=== PATIENT | male | born 1930 | race Caucasian/White ===

== ENCOUNTER 2018-07-08 14:57 | Observation (INO) ==
--- NOTE | 2018-07-08 15:38 | Emergency Department Note ---
Disposition Clinical Impression: Enlarged prostate, Urinary retention, General weakness Hematuria Qualifiers: Hematuria type: unspecified type Qualified Code(s): R31.9 - Hematuria, unspecified Disposition: Admitted As Inpatient Condition: Good Time of Disposition: 18:14 General Adult HPI - General Chief complaint: ED Weakness Stated complaint: "Hematuria/Weakness" Time Seen by Provider: 07/08/18 15:09 Nursing Notes Reviewed: Yes Vital Signs Reviewed: Yes - History of Present Illness HPI Narrative: 87-year-old male presents from home via EMS for evaluation of weakness and hematuria. Patient had blood in his urine onset yesterday at 10 AM. He has pain with urination which she is unable to quantify. He was seen and evaluated by his primary care physician prescribe ciprofloxacin for a presumed UTI. His pain and the redness of his urine has become worse. He is now dribbling with evidence of blood-tinged stains on his trousers. He has been feeling progressively profoundly weak. He fell at home because his legs gave out. He did not hit his head and he denies loss of consciousness. Patient does live at home alone. PMH: BPH with operative reduction, remote ME Antiplatelet: Aspirin 81 mg Wednesday, Wednesday, Wednesday No anticoagulant X ROS: Positive: As above Negative: Fever, chills, nausea, vomiting, chest pains, palpitations, dyspnea, diaphoresis, unusual back pain, change in bowel habits - Related Data Home Medications Medication Instructions Recorded Confirmed Atorvastatin [Lipitor] 40 mg PO HS 07/08/18 07/08/18 Carbidopa/Levodopa 25/100 [Sinemet 1 tab PO TID 07/08/18 07/08/18 25/100] Fluticasone Propionate Nasal 2 spr NS DAILY 07/08/18 07/08/18 [Flonase] Loratadine [Allergy Relief] 10 mg PO DAILY 07/08/18 07/08/18 Losartan [Cozaar] 25 mg PO DAILY 07/08/18 07/08/18 Metoprolol Succinate [Toprol Xl] 25 mg PO DAILY 07/08/18 07/08/18 Mirtazapine [Remeron] 45 mg PO HS 07/08/18 07/08/18 Montelukast [Singulair] 10 mg PO DAILY 07/08/18 07/08/18 Pantoprazole Sodium [Protonix] 40 mg PO DAILY 07/08/18 07/08/18 Ropinirole HCl [Requip] 2 mg PO TID 07/08/18 07/08/18 Spironolactone [Aldactone] 25 mg PO DAILY 07/08/18 07/08/18 Tamsulosin HCl [Flomax] 0.4 mg PO DAILY 07/08/18 07/08/18 diazePAM [Valium] 5 mg PO HS 07/08/18 07/08/18 Allergies Allergy/AdvReac Type Severity Reaction Status Date / Time No Known Allergies Allergy Verified 02/15/17 14:23 All systems ED: reviewed and negative except as stated. Review of Systems: As Per HPI Past Medical History - Past Medical History Medical history: Reports: other Psychiatric history: Reports: no psych history - Social History Smoking Status: Former smoker Smokeless Tobacco Status: No Alcohol use: Reports: none Drug use: Reports: none Physical Exam Vital Signs Reviewed General: Patient is alert, oriented, and in no acute distress. Patient is very hard of hearing however, with loud volume, he easily understands and answers questions properly. Head: atraumatic, normocephalic Eye: normal appearance, PERRL, EOMI, no scleral icterus, no conjunctival injection ENT: mucous membranes moist, normal external ear exam Neck: normal inspection, trachea midline, full ROM Chest: normal inspection, symmetric chest rise Respiratory: Good respiratory effort. Bilateral breath sounds are clear without wheezing, crackles, or rhonchi. Cardiovascular: Regular rate and rhythm. No clicks, rubs, gallops, or murmors. Normal heart sounds. Abdomen: Bowel sounds present normoactive x-4 quadrants. Abdomen is soft, nondistended, and nontender. No guarding or rebound. No organomegaly noted. Musculoskeletal: Spontaneously moving all extremities. Skin: warm, dry. 4 cm superficial skin tear over the dorsum of right hand. 1 cm superficial skin tear over the right middle finger. 2 cm superficial skin tear over the right ring finger. Neuro: Alert and oriented x4. Sensation light touch intact and equal bilaterally. Strength 5/5 and equal in upper and lower extremity. GCS 15. Answering all questions appropriately and briskly. No facial droop. No slurring of speech. Psych: Patient's affect is appropriate for situation. Course Course Narrative: EKG dated 8/31/18 at 15:46 interpreted as sinus rhythm with rate of 71. VT 254 ; first-degree AV block. QTC 436. Nonspecific ST-T changes. No previous EKG for comparison. Coudet fisher catheter placed; dark red urine returned. Serum hematology shows mild leukocytosis. Serum chemistry not concerning. Urinalysis concerning for UTI with overt hematuria. Urine culture ordered. Discussed the patient with on-call urology, Dr. Lawler, who agrees to accept the patient on consult. Discussed concern for possible bladder versus prostate cancer in the context of his hematuria which could also be caused by urinary tract infection. Discussed the patient with the admitting hospitalist, he agrees to accept the patient for continued evaluation and management of weakness and hematuria with urology on consult. Vital Signs Temperature 97.8 F 07/08/18 15:19 Pulse Rate 79 07/08/18 15:19 Respiratory Rate 20 07/08/18 15:19 Blood Pressure 125/72 07/08/18 15:19 O2 Sat by Pulse Oximetry 97 07/08/18 15:19 Temperature 97.8 F 07/08/18 15:56 Pulse Rate 74 07/08/18 16:02 Respiratory Rate 28 07/08/18 16:02 Blood Pressure 128/68 07/08/18 16:02 O2 Sat by Pulse Oximetry 97 07/08/18 16:02 Oxygen Delivery Oxygen Delivery Room Air Medical Decision Making - Lab Data Result diagrams: 07/08/18 15:31 07/08/18 15:33 Lab Results 07/08/18 07/08/18 07/08/18 Range/Units 15:31 15:33 17:07 WBC 12.1 H (4.3-11.1) K/mcL RBC 4.25 (4.19-5.50) M/mcL Hgb 13.5 (12.9-16.9) g/dL Hct 39.2 (37.5-50.1) % MCV 92.2 (83.0-100.0) fL MCH 31.8 (28.0-33.3) pg MCHC 34.4 (31.6-35.5) g/dL RDW 12.8 (11.5-14.5) % Plt Count 182 (140-400) K/mcL MPV 9.6 (9.4-12.4) fL Immature Gran % 0.3 (0-4) % Seg Neutrophils % 83.5 % Lymphocytes % 9.0 % Monocytes % 7.0 % Eosinophils % 0.1 % Basophils % 0.1 % Neutrophils # 10.1 H (1.6-8.9) K/mcL Lymphocytes # 1.1 (0.6-4.6) K/mcL Monocytes # 0.9 (0.0-1.3) K/mcL Eosinophils # 0.0 (0.0-0.6) K/mcL Basophils # 0.0 (0.0-0.2) K/mcL Sodium 135 L (136-145) mEq/L Potassium 3.8 (3.5-5.1) mEq/L Chloride 103 (98-107) mEq/L Carbon Dioxide 24 (23-29) mEq/L BUN 24 H (8-23) mg/dL Creatinine 1.06 (0.70-1.30) mg/dL Est GFR ( Amer) > 60 (> 60) Est GFR (Non-Af Amer) > 60 (> 60) BUN/Creatinine Ratio 23 (6-26) Glucose 109 H (70-105) mg/dL Calculated Osmolality 285 (280-300) Calcium 9.1 (8.6-10.3) mg/dL Troponin I 0.03 (< 0.04) ng/mL Urine Color Red A (Yellow) Urine Clarity Turbid A (Clear) Urine pH 6.0 (5.0-8.0) pH Units Ur Specific [place] 1.021 (1.010-1.025) Urine Protein >=300 H (Neg-Trace) mg/dL Urine Glucose (UA) 100 H (Normal) mg/dL Urine Ketones 15 H (Negative) mg/dL Urine Blood Large H (Negative) Urine Nitrite Positive A (Negative) Urine Bilirubin Large H (Negative) Urine Urobilinogen Normal (Normal) mg/dL Ur Leukocyte Esterase Moderate H (Negative) Urine Microscopic RBC TNTC H (0-3) per hpf Urine Microscopic WBC 3-5 H (0-3) per hpf Ur Squamous Epith Cells Many H (None-Few) per lpf Urine Bacteria None Seen (None-Few) per hpf Ur Culture Indicated? NO. A (NO)
[2018-07-08 16:04] LABS: Basophils % 0.1 %; Eosinophils % 0.1 %; Hematocrit 39.2 % (37.5-50.1); Hemoglobin 13.5 g/dL (12.9-16.9); Immature Granulocytes % 0.3 % (0-4); Lymphocytes # 1.1 K/mcL (0.6-4.6); Mean Corpuscular HGB Conc 34.4 g/dL (31.6-35.5); Mean Corpuscular Hemoglobin 31.8 pg (28.0-33.3); Mean Corpuscular Volume 92.2 fL (83.0-100.0); Mean Platelet Volume 9.6 fL (9.4-12.4); Monocytes # 0.9 K/mcL (0.0-1.3); Neutrophils # 10.1 K/mcL (1.6-8.9); Platelet Count 182 K/mcL (140-400); Red Blood Count 4.25 M/mcL (4.19-5.50); Red Cell Distribution Width 12.8 % (11.5-14.5); Segmented Neutrophils % 83.5 %
[2018-07-08 16:25] LABS: BUN/Creatinine Ratio 23 (6-26); Blood Urea Nitrogen 24 mg/dL (8-23); Calcium 9.1 mg/dL (8.6-10.3); Carbon Dioxide 24 mEq/L (23-29); Chloride 103 mEq/L (98-107); Glucose 109 mg/dL (70-105); Osmolality,Calculated 285 (280-300); Potassium 3.8 mEq/L (3.5-5.1); Sodium 135 mEq/L (136-145); Troponin I 0.03 ng/mL (< 0.04); eGFR For Non-African Americans > 60 (> 60)
[2018-07-08 17:22] LABS: Bilirubin,Urine Large (Negative); Blood,Urine Large (Negative); Clarity,Urine Turbid (Clear); Color,Urine Red (Yellow); Glucose,Urine (UA) 100 mg/dL (Normal); Ketones,Urine 15 mg/dL (Negative); Leukocyte Esterase,Urine Moderate (Negative); Nitrite,Urine Positive (Negative); Protein,Urine >=300 mg/dL (Neg-Trace); Specific Gravity,Urine 1.021 (1.010-1.025); Urobilinogen,Urine Normal (Normal)
[2018-07-08 17:23] LABS: Bacteria,Urine None Seen per hpf (None-Few); RBC,Urine TNTC per hpf (0-3); Squamous Epithelial Cell,Urine Many per lpf (None-Few)
[2018-07-08] MEDS ORDERED: cefTRIAXone 2,000 MG in Water for inj. (sterile) 20 ML 20 ML IVP ONE (17:34)
[2018-07-08] MEDS ORDERED: 0.9 % Sodium Chloride 500 ML IVC ONE (17:42)
--- NOTE | 2018-07-08 17:42 | Emergency Department Note ---
Disposition Clinical Impression: Hematuria, Enlarged prostate, Urinary retention, General weakness Disposition: Admitted As Inpatient Forms: ED Satisfaction Letter General Adult HPI - General Chief complaint: ED Urogenital-Male Stated complaint: "Hematuria/Weakness" Time Seen by Provider: 07/08/18 15:09 Source: family Limitations: physical limitation - History of Present Illness Pain Scale: 0 - Related Data Previous Rx's Medication Instructions Recorded cephALEXin [Keflex] 500 mg PO TID #21 capsule 02/15/17 Allergies Allergy/AdvReac Type Severity Reaction Status Date / Time No Known Allergies Allergy Verified 02/15/17 14:23 Past Medical History - Past Medical History Medical history: Reports: hyperlipidemia, hypertension, myocardial infarction, other Psychiatric history: Reports: no psych history - Social History Smoking Status: Former smoker Smokeless Tobacco Status: No Alcohol use: Reports: none Drug use: Reports: none Physical Exam - General Limitations: physical limitation Course Vital Signs Temperature 97.8 F 07/08/18 15:19 Pulse Rate 79 07/08/18 15:19 Respiratory Rate 20 07/08/18 15:19 Blood Pressure 125/72 07/08/18 15:19 O2 Sat by Pulse Oximetry 97 07/08/18 15:19 Temperature 97.8 F 07/08/18 15:56 Pulse Rate 74 07/08/18 16:02 Respiratory Rate 28 07/08/18 16:02 Blood Pressure 128/68 07/08/18 16:02 O2 Sat by Pulse Oximetry 97 07/08/18 16:02 Oxygen Delivery Oxygen Delivery Room Air Medical Decision Making - Lab Data Result diagrams: 07/08/18 15:31 07/08/18 15:33 Lab Results 07/08/18 07/08/18 07/08/18 Range/Units 15:31 15:33 17:07 WBC 12.1 H (4.3-11.1) K/mcL RBC 4.25 (4.19-5.50) M/mcL Hgb 13.5 (12.9-16.9) g/dL Hct 39.2 (37.5-50.1) % MCV 92.2 (83.0-100.0) fL MCH 31.8 (28.0-33.3) pg MCHC 34.4 (31.6-35.5) g/dL RDW 12.8 (11.5-14.5) % Plt Count 182 (140-400) K/mcL MPV 9.6 (9.4-12.4) fL Immature Gran % 0.3 (0-4) % Seg Neutrophils % 83.5 % Lymphocytes % 9.0 % Monocytes % 7.0 % Eosinophils % 0.1 % Basophils % 0.1 % Neutrophils # 10.1 H (1.6-8.9) K/mcL Lymphocytes # 1.1 (0.6-4.6) K/mcL Monocytes # 0.9 (0.0-1.3) K/mcL Eosinophils # 0.0 (0.0-0.6) K/mcL Basophils # 0.0 (0.0-0.2) K/mcL Sodium 135 L (136-145) mEq/L Potassium 3.8 (3.5-5.1) mEq/L Chloride 103 (98-107) mEq/L Carbon Dioxide 24 (23-29) mEq/L BUN 24 H (8-23) mg/dL Creatinine 1.06 (0.70-1.30) mg/dL Est GFR ( Amer) > 60 (> 60) Est GFR (Non-Af Amer) > 60 (> 60) BUN/Creatinine Ratio 23 (6-26) Glucose 109 H (70-105) mg/dL Calculated Osmolality 285 (280-300) Calcium 9.1 (8.6-10.3) mg/dL Troponin I 0.03 (< 0.04) ng/mL Urine Color Red A (Yellow) Urine Clarity Turbid A (Clear) Urine pH 6.0 (5.0-8.0) pH Units Ur Specific [place] 1.021 (1.010-1.025) Urine Protein >=300 H (Neg-Trace) mg/dL Urine Glucose (UA) 100 H (Normal) mg/dL Urine Ketones 15 H (Negative) mg/dL Urine Blood Large H (Negative) Urine Nitrite Positive A (Negative) Urine Bilirubin Large H (Negative) Urine Urobilinogen Normal (Normal) mg/dL Ur Leukocyte Esterase Moderate H (Negative) Urine Microscopic RBC TNTC H (0-3) per hpf Urine Microscopic WBC 3-5 H (0-3) per hpf Ur Squamous Epith Cells Many H (None-Few) per lpf Urine Bacteria None Seen (None-Few) per hpf Ur Culture Indicated? NO. A (NO) Critical Care Time Critical Care Time: No Attestation Statement - Attestation Attestation: I examined this patient and my medical decision-making was reviewed with the Resident Physician. I agree with the documented findings, disposition and treatment plan as described except to the extent set forth below. 87-year-old male presents emergency room for hematuria. Patient was unable to urinate secondary some bladder retention secondary to obstruction from blood clots. We did a CT scan which showed obvious debris in the bladder concerning for blood and possible underlying malignancy. His prostate was also severely enlarged which could also be consistent with either BPH or prostatic malignancy. He has also been feeling weak which I feel is secondary to the above. We were able to place a [place]ral catheter that straining hematuria blood and urine. consulted with urology. will see in consult. started him on rocephin. iv fluids. admit to hospitalist for further workup and evaluation
--- NOTE | 2018-07-08 18:24 | Internal Med History&Physical ---
Date of Encounter: 07/08/18 Time of Encounter: 18:00 Internal Medicine - H&P: HPI Chief complaint: Gross hematuria Admitted From: Home Plans for Post Hospital Care: [facility] History of present illness: Patient is an 87-year-old male with past medical history significant for hypertension and hyperlipidemia who presents with fall secondary to weakness due to gross hematuria. Patient lives independently and is a very poor historian. Granddaughter, who is at bedside, states that she got a call while at work stating that EMS was at patients house. When granddaughter arrived, she learned that patient had fell secondary to weakness. Patient reported to granddaughter that he had a one-day onset of blood in urine. Patient was brought in to ER for further evaluation. In the ER urinalysis revealed hematuria. Urologist was consulted from the ER per extended utilization review personnel. Patient will be admitted to medical surgical floor for management of gross hematuria. Past Med Surg Social Fam HX - Past Medical History Medical history: other Additional medical history: unknown Psychiatric history: no psych history - Past Surgical History Additional surgical history: Cardiac stent x2, prostate sx - Social History Smoking Status: Former smoker Smokeless Tobacco Status: No Alcohol use: none Drug use: none Internal Medicine - H&P: Meds Atorvastatin [Lipitor] 40 mg PO HS 07/08/18 [History] Carbidopa/Levodopa 25/100 [Sinemet 25/100] 1 tab PO TID 07/08/18 [History] Fluticasone Propionate Nasal [Flonase] 2 spr NS DAILY 07/08/18 [History] Loratadine [Allergy Relief] 10 mg PO DAILY 07/08/18 [History] Losartan [Cozaar] 25 mg PO DAILY 07/08/18 [History] Metoprolol Succinate [Toprol Xl] 25 mg PO DAILY 07/08/18 [History] Mirtazapine [Remeron] 45 mg PO HS 07/08/18 [History] Montelukast [Singulair] 10 mg PO DAILY 07/08/18 [History] Pantoprazole Sodium [Protonix] 40 mg PO DAILY 07/08/18 [History] Ropinirole HCl [Requip] 2 mg PO TID 07/08/18 [History] Spironolactone [Aldactone] 25 mg PO DAILY 07/08/18 [History] Tamsulosin HCl [Flomax] 0.4 mg PO DAILY 07/08/18 [History] diazePAM [Valium] 5 mg PO HS 07/08/18 [History] 3 Allergy/AdvReac Type Severity Reaction Status Date / Time No Known Allergies Allergy Verified 02/15/17 14:23 ROS unobtainable: due to mental status, other All Systems PM: A 10-system review of systems was performed and is negative for pertinent findings except as documented above in the HPI. - Constitutional Vitals: Temp Pulse Resp BP Pulse Ox 97.8 F 74 28 128/68 97 07/08/18 15:56 07/08/18 16:02 07/08/18 16:02 07/08/18 16:02 07/08/18 16:02 General appearance: Present: no acute distress Exam: See below - Eye Eye exam: Present: normal appearance - ENT ENT exam: Present: mucous membranes dry - Respiratory Respiratory exam: Present: CTAB. Absent: accessory muscle use, rales, rhonchi, wheezes - Cardiovascular Cardiovascular exam: Present: RRR, +S1, +S2. Absent: diastolic murmur, gallop, rubs, systolic murmur - GI/Abdominal GI/Abdominal exam: Present: normal bowel sounds, soft, no peritoneal signs. Absent: distended, tenderness - Extremities Exam Extremities exam: Absent: pedal edema - Neurological Exam Neurological exam: Present: alert - Psychiatric Psychiatric exam: Present: normal mood - Skin Skin exam: Present: pallor Internal Med - H&P Results - Labs CBC & Chem 7: 07/08/18 15:31 07/08/18 15:33 Labs: Short CBC 07/08/18 Range/Units 15:31 WBC 12.1 H (4.3-11.1) K/mcL Hgb 13.5 (12.9-16.9) g/dL Hct 39.2 (37.5-50.1) % Plt Count 182 (140-400) K/mcL Neutrophils # 10.1 H (1.6-8.9) K/mcL BMP 07/08/18 15:33 Sodium 135 L Potassium 3.8 Chloride 103 Carbon Dioxide 24 BUN 24 H Creatinine 1.06 Glucose 109 H Calcium 9.1 Cardiac Enzymes 07/08/18 Range/Units 15:33 Troponin I 0.03 (< 0.04) ng/mL Urine 07/08/18 Range/Units 17:07 Urine Color Red A (Yellow) Urine Clarity Turbid A (Clear) Urine pH 6.0 (5.0-8.0) pH Units Ur Specific [place] 1.021 (1.010-1.025) Urine Protein >=300 H (Neg-Trace) mg/dL Urine Glucose (UA) 100 H (Normal) mg/dL - Impressions ITS Impressions Abdomen/Pelvis CT 07/08/18 15:31 IMPRESSION: 1. Layering blood products are demonstrated within urinary bladder and urinary bladder is distended. Etiology for this is indeterminate. This could be related to prostate cancer or urinary bladder cancer. 2. Rather marked prostate gland enlargement. BPH or cancer are considerations. 3. Nonobstructing punctate calculi bilateral kidneys. 4. Bilateral parapelvic renal cysts. 5. Diverticulosis coli without CT evidence of acute diverticulitis. 6. Calcific atherosclerotic disease aorta. D/ / Tod Winston / Tod Winston Interpreting Provider: Tod Winston - Assessment and plan (1) Hematuria Current Visit: Yes Status: Acute Assessment and plan: Patient with gross hematuria for unknown time given patient poor historian and lives independently Urology consulted from ER and appreciate recommendations Qualifiers: Hematuria type: unspecified type Qualified Code(s): R31.9 - Hematuria, unspecified (2) General weakness Current Visit: Yes Status: Acute Assessment and plan: Patient fell status post generalized weakness Will consult physical therapy for evaluation for home safety and appreciate recommendations. (3) Enlarged prostate Current Visit: Yes Status: Acute Assessment and plan: Continue home dose of Flomax (4) Urinary retention Current Visit: Yes Status: Acute Assessment and plan: Urologist consulted as above and appreciate recommendations (5) HTN (hypertension) Current Visit: Yes Status: Acute Assessment and plan: Controlled; continue home dose of ARB and beta kell Qualifiers: Hypertension type: essential hypertension Qualified Code(s): I10 - Essential (primary) hypertension (6) HLD (hyperlipidemia) Current Visit: Yes Status: Acute Assessment and plan: Continue statin Qualifiers: Hyperlipidemia type: unspecified Qualified Code(s): E78.5 - Hyperlipidemia , unspecified (7) DVT prophylaxis Current Visit: Yes Status: Acute Assessment and plan: SCDs due to gross hematuria above - Time Spent With Patient Total time spent is greater than 50% in coordination of care (as documented) at patient's floor/unit and/or counseling patient:
[2018-07-08] MEDS ORDERED: Naloxone 0.4 MG/ML INJ IVP PRN (18:32)
[2018-07-08 19:10] LABS: Hematocrit 35.6 % (37.5-50.1); Hemoglobin 12.1 g/dL (12.9-16.9)
--- NOTE | 2018-07-08 19:26 | Urology - Consult Note ---
Date of Encounter: 07/08/18 Time of Encounter: 19:26 - Assessment and Plan (1) Gross hematuria Current Visit: Yes Status: Acute Assessment and plan: Patient's catheter was removed. Patient was then prepped and draped in normal sterile fashion. I then placed a 24-[place] hematuria catheter into the patient' s bladder. Had resistance at the prostate which was guided past using gentle pressure. 20 mL's was then placed in the balloon. Grossly blood was then returned. I then manually irrigated a significant amount clot of the patient's bladder. He was then connected to continuous bladder irrigation which cleared on a fast drip. Patient will need to continue on continuous bladder irrigation at this time. Will add finasteride to the patient's medication regimen. (2) Acute cystitis with hematuria Current Visit: Yes Status: Acute Assessment and plan: Patient did receive 1 dose of Rocephin in the emergency department. We will plan on continuing that antibiotic. (3) Urinary retention Current Visit: Yes Status: Acute Assessment and plan: Patient need to continue with catheter drainage at this time. Unsure of how well the patient was emptying his bladder prior to arrival to the hospital. Urology CN:HPI Consult date: 07/08/18 Reason for consult Urology: Gross Hematuria Requesting physician: Sumit Steele History of present illness: Cody is a 87-year-old male with a history of recent fall secondary to weakness. Patient has a 1 day history of gross hematuria. Patient had gross hematuria upon arrival to the emergency department. An 18-[place] catheter was placed which did not successfully drained the patient's bladder. He had a urinalysis which was positive for nitrites. Patient also had CT scan done which showed a massive prostatic enlargement with clot within the patient's bladder. Patient does have a history of a greenlight photo vaporization of the prostate in [address] Ocasio. Patient has not followed up with Dr. Ocasio or a urologist with our practice since the surgery. Patient unable to answer questions regarding recent voiding problems. Patient is on Flomax. Past Med Surg Social Fam HX - Past Medical History Medical history: other Additional medical history: unknown Psychiatric history: no psych history - Past Surgical History Additional surgical history: Cardiac stent x2, prostate sx - Social History Smoking Status: Former smoker Smokeless Tobacco Status: No Alcohol use: none Drug use: none Medications and Allergies Atorvastatin [Lipitor] 40 mg PO HS 07/08/18 [History] Carbidopa/Levodopa 25/100 [Sinemet 25/100] 1 tab PO TID 07/08/18 [History] Fluticasone Propionate Nasal [Flonase] 2 spr NS DAILY 07/08/18 [History] Loratadine [Allergy Relief] 10 mg PO DAILY 07/08/18 [History] Losartan [Cozaar] 25 mg PO DAILY 07/08/18 [History] Metoprolol Succinate [Toprol Xl] 25 mg PO DAILY 07/08/18 [History] Mirtazapine [Remeron] 45 mg PO HS 07/08/18 [History] Montelukast [Singulair] 10 mg PO DAILY 07/08/18 [History] Pantoprazole Sodium [Protonix] 40 mg PO DAILY 07/08/18 [History] Ropinirole HCl [Requip] 2 mg PO TID 07/08/18 [History] Spironolactone [Aldactone] 25 mg PO DAILY 07/08/18 [History] Tamsulosin HCl [Flomax] 0.4 mg PO DAILY 07/08/18 [History] diazePAM [Valium] 5 mg PO HS 07/08/18 [History] 3 Allergy/AdvReac Type Severity Reaction Status Date / Time No Known Allergies Allergy Verified 02/15/17 14:23 Review of Systems ROS unobtainable: due to mental status Exam Initial Vital Signs Temp Pulse Resp BP Pulse Ox 97.8 F 79 20 125/72 97 07/08/18 15:19 07/08/18 15:19 07/08/18 15:19 07/08/18 15:19 07/08/18 15:19 General/Neuological: Patient alert but verbal communication difficult Eyes: normal pupils, non-icteric Neck: no lymphadenopathy noted, supple to touch Cardiovascular: RRR, no murmurs Respiratory: normal respiratory effort, clear bilaterally ABD: soft, nontender, no masses palpated, good bowel sounds Back: no pain on percussion bilaterally : normal phallus, normal scrotum, testicles and epididymides normal, urethral meatus normal. Catheter draining from meatus with blood surrounding it. Grossly bloody urine in tubing Skin: no rashes noted Musculoskeletal: Full range of motion 4 but patient confined to bed at this time. Urology Results - Labs 07/08/18 18:53 07/08/18 15:33 Abnormal lab results WBC 12.1 K/mcL (4.3-11.1) H 07/08/18 15:31 Hgb 12.1 g/dL (12.9-16.9) L 07/08/18 18:53 Hct 35.6 % (37.5-50.1) L 07/08/18 18:53 Neutrophils # 10.1 K/mcL (1.6-8.9) H 07/08/18 15:31 Sodium 135 mEq/L (136-145) L 07/08/18 15:33 BUN 24 mg/dL (8-23) H 07/08/18 15:33 Glucose 109 mg/dL (70-105) H 07/08/18 15:33 Urine Color Red (Yellow) A 07/08/18 17:07 Urine Clarity Turbid (Clear) A 07/08/18 17:07 Urine Protein >=300 mg/dL (Neg-Trace) H 07/08/18 17:07 Urine Glucose (UA) 100 mg/dL (Normal) H 07/08/18 17:07 Urine Ketones 15 mg/dL (Negative) H 07/08/18 17:07 Urine Blood Large (Negative) H 07/08/18 17:07 Urine Nitrite Positive (Negative) A 07/08/18 17:07 Urine Bilirubin Large (Negative) H 07/08/18 17:07 Ur Leukocyte Esterase Moderate (Negative) H 07/08/18 17:07 Urine Microscopic RBC TNTC per hpf (0-3) H 07/08/18 17:07 Urine Microscopic WBC 3-5 per hpf (0-3) H 07/08/18 17:07 Ur Squamous Epith Cells Many per lpf (None-Few) H 07/08/18 17:07 Ur Culture Indicated? NO. (NO) A 07/08/18 17:07 All other labs normal. - Imaging CT scan - abdomen: image reviewed CT scan - pelvis: image reviewed (CT scan shows very large prostatic enlargement with blood products within the patient's bladder.) Consult Discharge Plan - Plan Referrals: Jak Cheung MD [Primary Care Provider] -
[2018-07-08] MEDS: Mirtazapine 15 MG TABLET PO SCH (21:02)
[2018-07-08] MEDS: diazePAM 5 MG TABLET PO SCH (21:02)
[2018-07-08] MEDS: Carbidopa/Levodopa 25/100 TABLET PO SCH (21:02)
[2018-07-08] MEDS: Finasteride 5 MG TABLET PO SCH (21:02)
[2018-07-08] MEDS: rOPINIRole 1 MG TABLET PO SCH (21:02)
[2018-07-09 05:21] LABS: Basophils % 0.2 %; Eosinophils # 0.2 K/mcL (0.0-0.6); Eosinophils % 1.5 %; Hematocrit 33.7 % (37.5-50.1); Hemoglobin 11.4 g/dL (12.9-16.9); Immature Granulocytes % 0.4 % (0-4); Lymphocytes # 1.8 K/mcL (0.6-4.6); Lymphocytes % 17.8 %; Mean Corpuscular HGB Conc 33.8 g/dL (31.6-35.5); Mean Corpuscular Hemoglobin 31.7 pg (28.0-33.3); Mean Corpuscular Volume 93.6 fL (83.0-100.0); Monocytes # 0.7 K/mcL (0.0-1.3); Neutrophils # 7.3 K/mcL (1.6-8.9); Platelet Count 148 K/mcL (140-400); Red Cell Distribution Width 12.9 % (11.5-14.5); Segmented Neutrophils % 73.1 %
[2018-07-09 05:41] LABS: BUN/Creatinine Ratio 18 (6-26); Blood Urea Nitrogen 17 mg/dL (8-23); Calcium 8.1 mg/dL (8.6-10.3); Carbon Dioxide 27 mEq/L (23-29); Chloride 106 mEq/L (98-107); Glucose 94 mg/dL (70-105); Osmolality,Calculated 285 (280-300); Potassium 3.6 mEq/L (3.5-5.1); Sodium 137 mEq/L (136-145); eGFR For Non-African Americans > 60 (> 60)
[2018-07-09] MEDS: Metoprolol XL (24 HR) Succ 25 MG TAB.ER.24H PO SCH (07:45)
[2018-07-09] MEDS: Carbidopa/Levodopa 25/100 TABLET PO SCH ×3 (07:45→21:05)
[2018-07-09] MEDS: rOPINIRole 1 MG TABLET PO SCH ×3 (07:45→21:04)
[2018-07-09] MEDS: Spironolactone 25 MG TABLET PO SCH (07:45)
[2018-07-09] MEDS: Loratadine 10 MG TABLET PO SCH (07:45)
[2018-07-09] MEDS: cefTRIAXone 1,000 MG in Water for inj. (sterile) 20 ML 10 ML IVP SCH (07:45)
[2018-07-09] MEDS: Fluticasone Propionate Nasal 50 MCG/SPRAY BOTTLE NS SCH (07:46)
--- NOTE | 2018-07-09 09:42 | Internal Med Progress Note ---
Hospitalist Progress Note - Encounter Date of Encounter: 07/09/18 Time of Encounter: 11:00 - Subjective Interval History: Patient presents with gross hematuria Not much improvement overnight in gross hematuria; patient has been started on continuous bladder infusion managed by urologist However patient's leukocytosis has resolved and has been afebrile since continued on IV antibiotics for acute cystitis - Exam Vitals: Temp Pulse Resp BP Pulse Ox 97.6 F 52 16 152/70 98 07/09/18 07:26 07/09/18 07:26 07/09/18 07:26 07/09/18 07:07/09/18 07:45 Exam: Gen.: Nonacute distress, alert and oriented 3 ENT: Mucosal membranes moist Respiratory: Lungs are clear to auscultation bilaterally without any wheezing rhonchi or rales Cardiovascular: Normal S1 and S2 regular rate rhythm no murmurs rubs or gallops Abdomen: Soft, nontender and nondistended with positive bowel sounds Extremities: No lower extremity edema Skin: Normal color - Assessment and Plan (1) Gross hematuria Current Visit: Yes Status: Acute Assessment and Plan: Patient still with gross hematuria Nephrology following with recommendations to continue CBI Patient's hemoglobin stable (2) Acute cystitis with hematuria Current Visit: Yes Status: Acute Assessment and Plan: Patient has been afebrile and leukocytosis has resolved Continue day 2 of IV ceftriaxone (3) General weakness Current Visit: Yes Status: Acute Assessment and Plan: Patient fell status post generalized weakness Will consult physical therapy for evaluation for home safety and appreciate recommendations. (4) Enlarged prostate Current Visit: Yes Status: Acute Assessment and Plan: Continue home dose of Flomax (5) Urinary retention Current Visit: Yes Status: Acute Assessment and Plan: Urologist consulted as above and appreciate recommendations (6) HTN (hypertension) Current Visit: Yes Status: Acute Assessment and Plan: Controlled; continue home dose of ARB and beta kell (7) HLD (hyperlipidemia) Current Visit: Yes Status: Acute Assessment and Plan: Continue statin (8) DVT prophylaxis Current Visit: Yes Status: Acute Assessment and Plan: SCDs due to gross hematuria above - Time Spent with Patient Total time spent is greater than 50% in coordination of care (as documented) at patient's floor/unit and/or counseling patient: Internal Medicine: Result - Labs CBC & Chem 7: 07/09/18 04:07 07/09/18 04:07 Labs: Short CBC 07/08/18 07/09/18 Range/Units 18:53 04:07 WBC 9.9 (4.3-11.1) K/mcL Hgb 12.1 L 11.4 L (12.9-16.9) g/dL Hct 35.6 L 33.7 L (37.5-50.1) % Plt Count 148 (140-400) K/mcL Neutrophils # 7.3 (1.6-8.9) K/mcL BMP 07/09/18 04:07 Sodium 137 Potassium 3.6 Chloride 106 Carbon Dioxide 27 BUN 17 Creatinine 0.97 Glucose 94 Calcium 8.1 L - VTE Reasons for not Prescribing Prophylaxis: Medical contraindication Documentation of Mechanical Device: Intermittent pneumatic compression device Consult Discharge Plan - Plan Referrals: Jak Cheung MD [Primary Care Provider] - (6) HTN (hypertension) Qualifiers: Hypertension type: essential hypertension Qualified Code(s): I10 - Essential (primary) hypertension (7) HLD (hyperlipidemia) Qualifiers: Hyperlipidemia type: unspecified Qualified Code(s): E78.5 - Hyperlipidemia, unspecified
--- NOTE | 2018-07-09 12:52 | Urology Progress Note ---
Date of Encounter: 07/09/18 Time of Encounter: 12:51 - Assessment and Plan (1) Gross hematuria Current Visit: Yes Status: Acute Assessment and plan: Continue with continuous bladder irrigation this time. I did manually irrigate the patient's bladder with a small amount of clots returned. (2) Acute cystitis with hematuria Current Visit: Yes Status: Acute Assessment and plan: Continue with antibiotics until cultures return. (3) Urinary retention Current Visit: Yes Status: Acute Assessment and plan: Continue with catheter drainage. Progress Note Narrative: Patient seen this morning. Patient still continues with some gross hematuria. He states he had a good night. Objective Initial Vital Signs Temp Pulse Resp BP Pulse Ox 97.8 F 79 20 125/72 97 07/08/18 15:19 07/08/18 15:19 07/08/18 15:19 07/08/18 15:19 07/08/18 15:19 - General physical appearance Present: well developed, well nourished - Respiratory Present: normal expansion - Abdomen Present: soft. Absent: tender - Genitourinary Present: other (Clear urine in catheter tubing on moderate drip) - Labs 07/09/18 04:07 07/09/18 04:07 Diabetes panel 07/09/18 Range/Units 04:07 Sodium 137 (136-145) mEq/L Potassium 3.6 (3.5-5.1) mEq/L Chloride 106 (98-107) mEq/L Carbon Dioxide 27 (23-29) mEq/L BUN 17 (8-23) mg/dL Creatinine 0.97 (0.70-1.30) mg/dL Glucose 94 (70-105) mg/dL Calcium 8.1 L (8.6-10.3) mg/dL Calcium panel 07/09/18 Range/Units 04:07 Calcium 8.1 L (8.6-10.3) mg/dL Pituitary panel 07/09/18 Range/Units 04:07 Sodium 137 (136-145) mEq/L Potassium 3.6 (3.5-5.1) mEq/L Chloride 106 (98-107) mEq/L Carbon Dioxide 27 (23-29) mEq/L BUN 17 (8-23) mg/dL Creatinine 0.97 (0.70-1.30) mg/dL Glucose 94 (70-105) mg/dL Calcium 8.1 L (8.6-10.3) mg/dL Adrenal panel 07/09/18 Range/Units 04:07 Sodium 137 (136-145) mEq/L Potassium 3.6 (3.5-5.1) mEq/L Chloride 106 (98-107) mEq/L Carbon Dioxide 27 (23-29) mEq/L BUN 17 (8-23) mg/dL Creatinine 0.97 (0.70-1.30) mg/dL Glucose 94 (70-105) mg/dL Calcium 8.1 L (8.6-10.3) mg/dL - VTE Reasons for not Prescribing Prophylaxis: Medical contraindication Documentation of Mechanical Device: Intermittent pneumatic compression device Consult Discharge Plan - Plan Referrals: Jak Cheung MD [Primary Care Provider] -
[2018-07-09] MEDS: Finasteride 5 MG TABLET PO SCH (17:36)
[2018-07-09] MEDS: diazePAM 5 MG TABLET PO SCH (21:05)
[2018-07-09] MEDS: Mirtazapine 15 MG TABLET PO SCH (21:07)
[2018-07-10 06:43] LABS: Basophils % 0.1 %; Eosinophils % 0.2 %; Hemoglobin 12.1 g/dL (12.9-16.9); Immature Granulocytes % 0.3 % (0-4); Lymphocytes # 1.1 K/mcL (0.6-4.6); Lymphocytes % 6.7 %; Mean Corpuscular HGB Conc 33.6 g/dL (31.6-35.5); Mean Corpuscular Volume 92.3 fL (83.0-100.0); Monocytes # 0.6 K/mcL (0.0-1.3); Neutrophils # 13.8 K/mcL (1.6-8.9); Platelet Count 153 K/mcL (140-400); Red Cell Distribution Width 12.9 % (11.5-14.5); Segmented Neutrophils % 88.7 %
--- NOTE | 2018-07-10 07:41 | Urology Progress Note ---
Date of Encounter: 07/10/18 Time of Encounter: 07:40 - Assessment and Plan (1) Gross hematuria Current Visit: Yes Status: Acute Assessment and plan: improving. continue slow drip CBI at this time. continue finasteride. (2) Acute cystitis with hematuria Current Visit: Yes Status: Acute Assessment and plan: awaiting culture. (3) Urinary retention Current Visit: Yes Status: Acute Assessment and plan: keep cath in place Progress Note Narrative: patient seen. feeling ok. still with some hematuria, but improving. cultures pending. Objective Initial Vital Signs Temp Pulse Resp BP Pulse Ox 97.8 F 79 20 125/72 97 07/08/18 15:19 07/08/18 15:19 07/08/18 15:19 07/08/18 15:19 07/08/18 15:19 - General physical appearance Present: well developed, well nourished - Abdomen Present: soft. Absent: tender - Genitourinary Urine Appearance: Present: Clear, Sediment - Labs 07/10/18 05:58 07/09/18 04:07 - VTE Reasons for not Prescribing Prophylaxis: Medical contraindication Documentation of Mechanical Device: Intermittent pneumatic compression device Consult Discharge Plan - Plan Referrals: Jak Cheung MD [Primary Care Provider] -
--- NOTE | 2018-07-10 09:08 | Internal Med Progress Note ---
Hospitalist Progress Note - Encounter Date of Encounter: 07/10/18 Time of Encounter: 11:00 - Subjective Interval History: Patient presents with gross hematuria and found to have acute cystitis Patient with improvement of gross hematuria on continuous bladder irrigation - Exam Vitals: Temp Pulse Resp BP Pulse Ox 98.2 F 79 15 132/75 95 07/10/18 06:35 07/10/18 06:35 07/10/18 06:35 07/10/18 06:35 07/10/18 06:35 Exam: Gen.: Nonacute distress, alert and oriented 3 ENT: Mucosal membranes moist Respiratory: Lungs are clear to auscultation bilaterally without any wheezing rhonchi or rales Cardiovascular: Normal S1 and S2 regular rate rhythm no murmurs rubs or gallops Abdomen: Soft, nontender and nondistended with positive bowel sounds Extremities: No lower extremity edema Skin: Pale - Assessment and Plan (1) Gross hematuria Current Visit: Yes Status: Acute Assessment and Plan: Patient with improvement in gross hematuria Urology following with recommendations to continue CBI Patient's hemoglobin stable (2) Acute cystitis with hematuria Current Visit: Yes Status: Acute Assessment and Plan: Patient has been afebrile but white count has returned this morning at 15.6 Continue day 3 of IV ceftriaxone (3) General weakness Current Visit: Yes Status: Acute Assessment and Plan: Patient fell status post generalized weakness Will consult physical therapy for evaluation for home safety and appreciate recommendations. (4) Enlarged prostate Current Visit: Yes Status: Acute Assessment and Plan: Continue home dose of Flomax (5) Urinary retention Current Visit: Yes Status: Acute Assessment and Plan: Urologist consulted as above and appreciate recommendations (6) HTN (hypertension) Current Visit: Yes Status: Acute Assessment and Plan: Controlled; continue home dose of ARB and beta kell (7) HLD (hyperlipidemia) Current Visit: Yes Status: Acute Assessment and Plan: Continue statin (8) DVT prophylaxis Current Visit: Yes Status: Acute Assessment and Plan: SCDs due to gross hematuria above - Time Spent with Patient Total time spent is greater than 50% in coordination of care (as documented) at patient's floor/unit and/or counseling patient: Internal Medicine: Result - Labs CBC & Chem 7: 07/10/18 05:58 07/10/18 05:58 Labs: Short CBC 07/10/18 Range/Units 05:58 WBC 15.6 H D (4.3-11.1) K/mcL Hgb 12.1 L (12.9-16.9) g/dL Hct 36.0 L (37.5-50.1) % Plt Count 153 (140-400) K/mcL Neutrophils # 13.8 H (1.6-8.9) K/mcL - VTE Reasons for not Prescribing Prophylaxis: Medical contraindication Documentation of Mechanical Device: Intermittent pneumatic compression device Consult Discharge Plan - Plan Referrals: Jak Cheung MD [Primary Care Provider] - (6) HTN (hypertension) Qualifiers: Hypertension type: essential hypertension Qualified Code(s): I10 - Essential (primary) hypertension (7) HLD (hyperlipidemia) Qualifiers: Hyperlipidemia type: unspecified Qualified Code(s): E78.5 - Hyperlipidemia, unspecified
[2018-07-10 09:21] LABS: BUN/Creatinine Ratio 19 (6-26); Blood Urea Nitrogen 17 mg/dL (8-23); Calcium 8.3 mg/dL (8.6-10.3); Carbon Dioxide 24 mEq/L (23-29); Chloride 104 mEq/L (98-107); Glucose 106 mg/dL (70-105); Osmolality,Calculated 284 (280-300); Potassium 3.7 mEq/L (3.5-5.1); Sodium 136 mEq/L (136-145); eGFR For Non-African Americans > 60 (> 60)
[2018-07-10] MEDS: Carbidopa/Levodopa 25/100 TABLET PO SCH ×3 (09:35→19:48)
[2018-07-10] MEDS: Spironolactone 25 MG TABLET PO SCH (09:35)
[2018-07-10] MEDS: Metoprolol XL (24 HR) Succ 25 MG TAB.ER.24H PO SCH (09:35)
[2018-07-10] MEDS: Loratadine 10 MG TABLET PO SCH (09:35)
[2018-07-10] MEDS: cefTRIAXone 1,000 MG in Water for inj. (sterile) 20 ML 10 ML IVP SCH (09:36)
[2018-07-10] MEDS: Fluticasone Propionate Nasal 50 MCG/SPRAY BOTTLE NS SCH (09:36)
[2018-07-10] MEDS: rOPINIRole 1 MG TABLET PO SCH ×3 (09:36→19:48)
[2018-07-10] MEDS: Finasteride 5 MG TABLET PO SCH (17:31)
[2018-07-10] MEDS: Mirtazapine 15 MG TABLET PO SCH (19:48)
[2018-07-10] MEDS: diazePAM 5 MG TABLET PO SCH (19:49)
[2018-07-11 01:10] LABS: BUN/Creatinine Ratio 13 (6-26); Basophils % 0.2 %; Blood Urea Nitrogen 14 mg/dL (8-23); Calcium 8.1 mg/dL (8.6-10.3); Carbon Dioxide 27 mEq/L (23-29); Chloride 103 mEq/L (98-107); Eosinophils # 0.2 K/mcL (0.0-0.6); Glucose 111 mg/dL (70-105); Hematocrit 33.5 % (37.5-50.1); Hemoglobin 11.4 g/dL (12.9-16.9); Immature Granulocytes % 0.3 % (0-4); Lymphocytes # 1.9 K/mcL (0.6-4.6); Lymphocytes % 19.5 %; Mean Corpuscular Hemoglobin 31.8 pg (28.0-33.3); Mean Corpuscular Volume 93.3 fL (83.0-100.0); Monocytes # 0.7 K/mcL (0.0-1.3); Monocytes % 6.7 %; Neutrophils # 6.9 K/mcL (1.6-8.9); Osmolality,Calculated 281 (280-300); Platelet Count 157 K/mcL (140-400); Potassium 3.5 mEq/L (3.5-5.1); Red Blood Count 3.59 M/mcL (4.19-5.50); Red Cell Distribution Width 12.7 % (11.5-14.5); Segmented Neutrophils % 71.3 %; Sodium 135 mEq/L (136-145); eGFR For Non-African Americans > 60 (> 60)
[2018-07-11] MEDS: cefTRIAXone 1,000 MG in Water for inj. (sterile) 20 ML 10 ML IVP SCH (08:22)
[2018-07-11] MEDS: Carbidopa/Levodopa 25/100 TABLET PO SCH ×3 (08:23→20:05)
[2018-07-11] MEDS: Fluticasone Propionate Nasal 50 MCG/SPRAY BOTTLE NS SCH (08:23)
[2018-07-11] MEDS: rOPINIRole 1 MG TABLET PO SCH ×3 (08:23→20:05)
[2018-07-11] MEDS: Metoprolol XL (24 HR) Succ 25 MG TAB.ER.24H PO SCH (08:23)
[2018-07-11] MEDS: Loratadine 10 MG TABLET PO SCH (08:24)
[2018-07-11] MEDS: Spironolactone 25 MG TABLET PO SCH (08:24)
--- NOTE | 2018-07-11 09:00 | Urology Progress Note ---
Date of Encounter: 07/11/18 Time of Encounter: 08:58 - Assessment and Plan (1) Gross hematuria Current Visit: Yes Status: Acute Assessment and plan: resolved. continue with finasteride 5mg daily on discharge (2) Acute cystitis with hematuria Current Visit: Yes Status: Acute Assessment and plan: recommend tx for 7 days even though culture neg. (3) Urinary retention Current Visit: Yes Status: Acute Assessment and plan: keep catheter in place. will have f/u scheduled. Progress Note Narrative: patient seen. feeling good. urine clear off irrigation. Objective Initial Vital Signs Temp Pulse Resp BP Pulse Ox 97.8 F 79 20 125/72 97 07/08/18 15:19 07/08/18 15:19 07/08/18 15:19 07/08/18 15:19 07/08/18 15:19 - General physical appearance Present: well developed, well nourished - Abdomen Present: soft. Absent: tender - Genitourinary Urine Appearance: Present: Clear - Labs 07/11/18 00:32 07/11/18 00:32 Diabetes panel 07/10/18 07/11/18 Range/Units 05:58 00:32 Sodium 136 135 L (136-145) mEq/L Potassium 3.7 3.5 (3.5-5.1) mEq/L Chloride 104 103 (98-107) mEq/L Carbon Dioxide 24 27 (23-29) mEq/L BUN 17 14 (8-23) mg/dL Creatinine 0.89 1.04 (0.70-1.30) mg/dL Glucose 106 H 111 H (70-105) mg/dL Calcium 8.3 L 8.1 L (8.6-10.3) mg/dL Calcium panel 07/10/18 07/11/18 Range/Units 05:58 00:32 Calcium 8.3 L 8.1 L (8.6-10.3) mg/dL Pituitary panel 07/10/18 07/11/18 Range/Units 05:58 00:32 Sodium 136 135 L (136-145) mEq/L Potassium 3.7 3.5 (3.5-5.1) mEq/L Chloride 104 103 (98-107) mEq/L Carbon Dioxide 24 27 (23-29) mEq/L BUN 17 14 (8-23) mg/dL Creatinine 0.89 1.04 (0.70-1.30) mg/dL Glucose 106 H 111 H (70-105) mg/dL Calcium 8.3 L 8.1 L (8.6-10.3) mg/dL Adrenal panel 07/10/18 07/11/18 Range/Units 05:58 00:32 Sodium 136 135 L (136-145) mEq/L Potassium 3.7 3.5 (3.5-5.1) mEq/L Chloride 104 103 (98-107) mEq/L Carbon Dioxide 24 27 (23-29) mEq/L BUN 17 14 (8-23) mg/dL Creatinine 0.89 1.04 (0.70-1.30) mg/dL Glucose 106 H 111 H (70-105) mg/dL Calcium 8.3 L 8.1 L (8.6-10.3) mg/dL - VTE Reasons for not Prescribing Prophylaxis: Medical contraindication Documentation of Mechanical Device: Intermittent pneumatic compression device Consult Discharge Plan - Plan Referrals: Jak Cheung MD [Primary Care Provider] -
--- NOTE | 2018-07-11 09:48 | Internal Med Progress Note ---
Hospitalist Progress Note - Encounter Date of Encounter: 07/11/18 Time of Encounter: 11:00 - Subjective Interval History: Patient presents with gross hematuria and found to have acute cystitis Patient's gross hematuria has resolved Physical therapy consult with recommendations for [facility] facility placement; case management will be consulted for assistance - Exam Vitals: Temp Pulse Resp BP Pulse Ox 97.8 F 61 17 137/78 98 07/11/18 07:49 07/11/18 07:49 07/11/18 07:49 07/11/18 07:49 07/11/18 07:49 Exam: Gen.: Nonacute distress, alert and oriented 3 ENT: Mucosal membranes moist Respiratory: Lungs are clear to auscultation bilaterally without any wheezing rhonchi or rales Cardiovascular: Normal S1 and S2 regular rate rhythm no murmurs rubs or gallops Abdomen: Soft, nontender and nondistended with positive bowel sounds Extremities: No lower extremity edema Skin: Pale - Assessment and Plan (1) Gross hematuria Current Visit: Yes Status: Acute Assessment and Plan: Resolved; Urology following with recommendations discontinue CBI and to keep catheter in place. Patient is to follow-up with urology as an outpatient (2) Acute cystitis with hematuria Current Visit: Yes Status: Acute Assessment and Plan: Patient has been afebrile and leukocytosis has resolved Continue day 5 of IV ceftriaxone (3) General weakness Current Visit: Yes Status: Acute Assessment and Plan: Patient fell status post generalized weakness Physical therapy recommendations for [facility] facility placement; case management consulted for assistance. (4) Enlarged prostate Current Visit: Yes Status: Acute Assessment and Plan: Continue home dose of Flomax (5) Urinary retention Current Visit: Yes Status: Acute Assessment and Plan: Urologist recommendations to maintain Corral catheter on discharge to follow-up with urology as an outpatient (6) HTN (hypertension) Current Visit: Yes Status: Acute Assessment and Plan: Controlled; continue home dose of ARB and beta kell (7) HLD (hyperlipidemia) Current Visit: Yes Status: Acute Assessment and Plan: Continue statin (8) DVT prophylaxis Current Visit: Yes Status: Acute Assessment and Plan: SCDs due to gross hematuria above - Time Spent with Patient Total time spent is greater than 50% in coordination of care (as documented) at patient's floor/unit and/or counseling patient: Internal Medicine: Result - Labs CBC & Chem 7: 07/11/18 00:32 07/11/18 00:32 Labs: Short CBC 07/11/18 Range/Units 00:32 WBC 9.7 (4.3-11.1) K/mcL Hgb 11.4 L (12.9-16.9) g/dL Hct 33.5 L (37.5-50.1) % Plt Count 157 (140-400) K/mcL Neutrophils # 6.9 (1.6-8.9) K/mcL BMP 07/11/18 00:32 Sodium 135 L Potassium 3.5 Chloride 103 Carbon Dioxide 27 BUN 14 Creatinine 1.04 Glucose 111 H Calcium 8.1 L - VTE Reasons for not Prescribing Prophylaxis: Medical contraindication Documentation of Mechanical Device: Intermittent pneumatic compression device Consult Discharge Plan - Plan Referrals: Rigo Lawler MD [Partnered Physician] - 07/19/18 8:45 am Jak Cheung MD [Primary Care Provider] - (6) HTN (hypertension) Qualifiers: Hypertension type: essential hypertension Qualified Code(s): I10 - Essential (primary) hypertension (7) HLD (hyperlipidemia) Qualifiers: Hyperlipidemia type: unspecified Qualified Code(s): E78.5 - Hyperlipidemia, unspecified
[2018-07-11] MEDS: Finasteride 5 MG TABLET PO SCH (15:59)
[2018-07-11] MEDS: Mirtazapine 15 MG TABLET PO SCH (20:05)
[2018-07-11] MEDS: diazePAM 5 MG TABLET PO SCH (20:05)
--- NOTE | 2018-07-12 09:18 | Internal Med Progress Note ---
Hospitalist Progress Note - Encounter Date of Encounter: 07/12/18 Time of Encounter: 09:15 - Subjective Interval History: Presented with gross hematuria and found to have acute cystitis Hematuria has resolved Patient continuing to improve daily, seen and examined at bedside today, discussed plan of care. Recommendations at this time of her [facility] facility placement with rehabilitation however, patient appears to have full capacity and able to make his own decisions and is refusing placement to ECF. We will discuss with social services counselor in regards to attempting to obtain home health with home rehabilitation. The patient is independent and lives at home alone without family help at this time. - Exam Vitals: Temp Pulse Resp BP Pulse Ox 97.7 F 60 15 122/71 96 07/12/18 07:00 07/12/18 07:00 07/12/18 07:00 07/12/18 07:00 07/12/18 07:00 Exam: PHYSICAL EXAMINATION: GENERAL: The patient is an ill-appearing elderly male in no apparent distress. He is alert and oriented x3. HEENT: Head is normocephalic and atraumatic. Extraocular muscles are intact. Pupils are equal, round, and reactive to light and accommodation. Nares appeared normal. Mouth is well hydrated and without lesions. Mucous membranes are moist. NECK: Supple. No carotid bruits. No lymphadenopathy or thyromegaly. LUNGS: Clear/diminished to auscultation. HEART: Regular rate and rhythm, S1, S2 without murmur rubs or gallops. ABDOMEN: Soft, nontender, and nondistended. Positive bowel sounds. No hepatosplenomegaly was noted. EXTREMITIES: Without any cyanosis, clubbing, rash, lesions or edema. NEUROLOGIC: Cranial nerves II through XII are grossly intact. SKIN: No ulceration or induration present. - Assessment and Plan (1) Acute cystitis with hematuria Current Visit: Yes Status: Acute Assessment and Plan: remains afebrile without leukocytosis Continue day 6 of IV ceftriaxone; urology recommendations 7 doses of ceftriaxone (2) Enlarged prostate Current Visit: Yes Status: Acute Assessment and Plan: Cont Flomax rx at d/c (3) Urinary retention Current Visit: Yes Status: Acute Assessment and Plan: Allergy recommendations to continue Corral catheter on discharge Discuss with urology this afternoon removing CBI to follow-up with urology as an outpatient (4) General weakness Current Visit: Yes Status: Acute Assessment and Plan: Admitted status post fall secondary to generalized weakness fatigue Physical deconditioning PTOT seeing well and patient recommended for [facility] placement for rehabilitation however, patient is declining We will discuss with PTOT/social services counselor and nurse navigator regarding setting up home health services with PT/OT. (5) HTN (hypertension) Current Visit: Yes Status: Acute Assessment and Plan: per hx Controlled cont home dose of ARB and beta kell (6) HLD (hyperlipidemia) Current Visit: Yes Status: Acute Assessment and Plan: Cont statin (7) Gross hematuria Current Visit: Yes Status: Acute Assessment and Plan: Resolved Urology following (8) DVT prophylaxis Current Visit: Yes Status: Acute Assessment and Plan: Continue SCDs due to gross hematuria - Time Spent with Patient Total time spent is greater than 50% in coordination of care (as documented) at patient's floor/unit and/or counseling patient: less than 15 minutes Plan of Care Discussed with: patient Internal Medicine: Result - Labs CBC & Chem 7: 07/11/18 00:32 07/11/18 00:32 - VTE Reasons for not Prescribing Prophylaxis: Medical contraindication Documentation of Mechanical Device: Intermittent pneumatic compression device Consult Discharge Plan - Plan Referrals: Rigo Lawler MD [Partnered Physician] - 07/19/18 8:45 am Jak Cheung MD [Primary Care Provider] - (5) HTN (hypertension) Qualifiers: Hypertension type: essential hypertension Qualified Code(s): I10 - Essential (primary) hypertension (6) HLD (hyperlipidemia) Qualifiers: Hyperlipidemia type: unspecified Qualified Code(s): E78.5 - Hyperlipidemia, unspecified
[2018-07-12] MEDS: cefTRIAXone 1,000 MG in Water for inj. (sterile) 20 ML 10 ML IVP SCH (10:02)
[2018-07-12] MEDS: Carbidopa/Levodopa 25/100 TABLET PO SCH ×3 (10:03→21:10)
[2018-07-12] MEDS: Spironolactone 25 MG TABLET PO SCH (10:03)
[2018-07-12] MEDS: Metoprolol XL (24 HR) Succ 25 MG TAB.ER.24H PO SCH (10:03)
[2018-07-12] MEDS: Loratadine 10 MG TABLET PO SCH (10:03)
[2018-07-12] MEDS: rOPINIRole 1 MG TABLET PO SCH ×3 (10:04→21:10)
[2018-07-12] MEDS: Fluticasone Propionate Nasal 50 MCG/SPRAY BOTTLE NS SCH (10:04)
[2018-07-12] MEDS: Finasteride 5 MG TABLET PO SCH (17:48)
[2018-07-12] MEDS: Mirtazapine 15 MG TABLET PO SCH (21:10)
[2018-07-12] MEDS: diazePAM 5 MG TABLET PO SCH (21:10)
[2018-07-13] MEDS: cefTRIAXone 1,000 MG in Water for inj. (sterile) 20 ML 10 ML IVP SCH (09:32)
[2018-07-13] MEDS: Loratadine 10 MG TABLET PO SCH (09:33)
[2018-07-13] MEDS: Carbidopa/Levodopa 25/100 TABLET PO SCH ×2 (09:33→15:30)
[2018-07-13] MEDS: Metoprolol XL (24 HR) Succ 25 MG TAB.ER.24H PO SCH (09:33)
[2018-07-13] MEDS: rOPINIRole 1 MG TABLET PO SCH ×2 (09:33→15:30)
[2018-07-13] MEDS: Spironolactone 25 MG TABLET PO SCH (09:33)
[2018-07-13] MEDS: Fluticasone Propionate Nasal 50 MCG/SPRAY BOTTLE NS SCH (09:34)
--- NOTE | 2018-07-13 15:21 | Internal Med Progress Note ---
Hospitalist Progress Note - Encounter Date of Encounter: 07/13/18 Time of Encounter: 15:19 - Subjective Interval History: Presented with gross hematuria and found to have acute cystitis Hematuria has resolved Patient continuing to improve daily, seen and examined at bedside today, discussed plan of care. Recommendations at this time of her [facility] facility placement with rehabilitation however, patient appears to have full capacity and able to make his own decisions and is refusing placement to ECF. We will discuss with business services tech in regards to attempting to obtain home health with home rehabilitation. The patient is independent and lives at home alone without family help at this time. - Exam Vitals: Temp Pulse Resp BP Pulse Ox 98.0 F 73 16 135/69 96 07/13/18 10:45 07/13/18 10:45 07/13/18 10:45 07/13/18 10:45 07/13/18 10:45 Exam: PHYSICAL EXAMINATION: GENERAL: The patient is an ill-appearing elderly male in no apparent distress. He is alert and oriented x3. HEENT: Head is normocephalic and atraumatic. Extraocular muscles are intact. Pupils are equal, round, and reactive to light and accommodation. NECK: Supple. No carotid bruits. No lymphadenopathy or thyromegaly. LUNGS: Clear/diminished to auscultation. HEART: Regular rate and rhythm, S1, S2 without murmur rubs or gallops. Genitourinary: No hematuria ABDOMEN: Soft, nontender, and nondistended. Positive bowel sounds. No hepatosplenomegaly was noted. SKIN: No ulceration or induration present. - Assessment and Plan (1) Acute cystitis with hematuria Current Visit: Yes Status: Acute Assessment and Plan: 07/13 stop rocephin; d/c CBI, remains afebrile, and continuing to improve (2) Enlarged prostate Current Visit: Yes Status: Acute Assessment and Plan: Cont Flomax rx at d/c f/u with urology; d/w urologist Dr. Ocasio today; they will set-up f/u appointment (3) Urinary retention Current Visit: Yes Status: Acute Assessment and Plan: Urology recommendations to continue Corral catheter on discharge; d/w patient who agrees at this time to follow-up with urology as an outpatient (4) General weakness Current Visit: Yes Status: Acute Assessment and Plan: Admitted status post fall secondary to generalized weakness fatigue Physical deconditioning d/c to [facility]hab. (5) HTN (hypertension) Current Visit: Yes Status: Acute Assessment and Plan: per hx stable, cont anti-htn meds (6) HLD (hyperlipidemia) Current Visit: Yes Status: Acute Assessment and Plan: Cont statin (7) Gross hematuria Current Visit: Yes Status: Resolved Assessment and Plan: see above (8) DVT prophylaxis Current Visit: Yes Status: Acute - Time Spent with Patient Total time spent is greater than 50% in coordination of care (as documented) at patient's floor/unit and/or counseling patient: less than 15 minutes Plan of Care Discussed with: patient Internal Medicine: Result - Labs CBC & Chem 7: 07/11/18 00:32 07/11/18 00:32 - VTE Reasons for not Prescribing Prophylaxis: Medical contraindication Documentation of Mechanical Device: Intermittent pneumatic compression device Consult Discharge Plan - Plan Referrals: Rigo Lawler MD [Partnered Physician] - 07/19/18 8:45 am aJk Cheung MD [Primary Care Provider] - (5) HTN (hypertension) Qualifiers: Hypertension type: essential hypertension Qualified Code(s): I10 - Essential (primary) hypertension (6) HLD (hyperlipidemia) Qualifiers: Hyperlipidemia type: unspecified Qualified Code(s): E78.5 - Hyperlipidemia, unspecified
[2018-07-13 15:35] VITALS: BP 121/61
--- NOTE | 2018-07-13 17:30 | Discharge Summary ---
- NOTES TO OUTPATIENT PROVIDER Notes to Outpatient Provider: f/u with urology while inpatient at [facility] for rehab. f/u regarding enlarged prostate Date of Encounter: 07/13/18 Time of Encounter: 17:23 - Discharge Diagnosis (1) Acute cystitis with hematuria Priority: Primary Status: Acute Assessment and Plan: 07/13 stop rocephin; d/c CBI, remains afebrile, and continuing to improve (2) Enlarged prostate Priority: Secondary Status: Acute Assessment and Plan: Cont Flomax rx at d/c f/u with urology; d/w urologist Dr. Ocasio today; they will set-up f/u appointment (3) Urinary retention Priority: Secondary Status: Acute Assessment and Plan: Urology recommendations to continue Fisher catheter on discharge; d/w patient who agrees at this time to follow-up with urology as an outpatient (4) General weakness Priority: Secondary Status: Acute Assessment and Plan: to d/c to [facility] for rehab (5) HTN (hypertension) Priority: Secondary Status: Acute Qualifiers: Hypertension type: essential hypertension Qualified Code(s): I10 - Essential (primary) hypertension (6) HLD (hyperlipidemia) Priority: Secondary Status: Acute Qualifiers: Hyperlipidemia type: unspecified Qualified Code(s): E78.5 - Hyperlipidemia , unspecified (7) Gross hematuria Priority: Secondary Status: Resolved Assessment and Plan: see above (8) DVT prophylaxis Priority: Secondary Status: Acute Hospital course: Mr. Chacon is a 87 year old male who presented s/p falls 2/2 weakness and UTI with cystitis. Lives at home alone without family help. He was found to have hematuria and diagnosed with acute cystitis with hematuria. D/t urinary retention with enlarged prostate, urology was consulted and inserted a 3-way fisher catheter with CBI. Hematuria resolved. Urology recommends to leave fisher in place to promote drainage in the setting of an enlarge prostate and cystitis. He received a total of 7-doses of rocephin. Received PT/OT while inpatient; found to be impulsive and unsteady. Rehab would be beneficial and he is being discharged to a swing bed rehab facility. Uneventful hospital course. Urology to f/u regarding prostate enlargement and fisher catheter while patient at [facility] swing/rehab facility. Discharge discussed with: patient, nurse, education sales consultant - Time Spent with Patient Total time spent providing and/or coordinating discharge services: Less than 30 minutes - Discharge Medications Home Medications: Atorvastatin [Lipitor] 40 mg PO HS 07/08/18 [History] Carbidopa/Levodopa 25/100 [Sinemet 25/100] 1 tab PO TID 07/08/18 [History] Fluticasone Propionate Nasal [Flonase] 2 spr NS DAILY 07/08/18 [History] Loratadine [Allergy Relief] 10 mg PO DAILY 07/08/18 [History] Losartan [Cozaar] 25 mg PO DAILY 07/08/18 [History] Metoprolol Succinate [Toprol Xl] 25 mg PO DAILY 07/08/18 [History] Mirtazapine [Remeron] 45 mg PO HS 07/08/18 [History] Montelukast [Singulair] 10 mg PO DAILY 07/08/18 [History] Pantoprazole Sodium [Protonix] 40 mg PO DAILY 07/08/18 [History] Ropinirole HCl [Requip] 2 mg PO TID 07/08/18 [History] Spironolactone [Aldactone] 25 mg PO DAILY 07/08/18 [History] Tamsulosin HCl [Flomax] 0.4 mg PO DAILY 07/08/18 [History] diazePAM [Valium] 5 mg PO HS 07/08/18 [History] Allergies/Adverse Reactions: 3 Allergy/AdvReac Type Severity Reaction Status Date / Time No Known Allergies Allergy Verified 02/15/17 14:23 Date of admission: 07/08/18 18:07 Primary care physician: Jak Cheung MD Consults: 07/08/18 18:34 Consult to Physical Therapy [CONS] Routine Comment: Evaluate, develop and implement POC Reason for Consult: Evaluate for home safety due to fall Does patient have active BEDREST order?: No Is patient medically & hemodynamically stable?: Yes Patient assessed for mobility or mobilized this visit?: No 07/12/18 07:46 Consult to Nurse Navigator [CONS] Routine Comment: Consult to Mold Filler [CONS] Routine Reason for SW Consult: dc planning 07/12/18 08:50 Consult to Occupational Therapy [CONS] Routine Comment: Evaluate, develop and implement POC Reason for Consult: S/P FALL, WEAKNESS Does patient have active BEDREST order?: No Is patient medically & hemodynamically stable?: Yes Discharging clinician: Crow Burrows Anticipated date of discharge: 07/13/18 - Constitutional Vitals: Temp Pulse Resp BP Pulse Ox 97.8 F 78 16 121/61 96 07/13/18 15:35 07/13/18 15:35 07/13/18 15:35 07/13/18 15:35 07/13/18 15:35 General appearance: Present: no acute distress Exam: PHYSICAL EXAMINATION: GENERAL: The patient is an ill-appearing elderly male in no apparent distress. He is alert and oriented x3. HEENT: Head is normocephalic and atraumatic. Extraocular muscles are intact. Pupils are equal, round, and reactive to light and accommodation. NECK: Supple. No carotid bruits. No lymphadenopathy or thyromegaly. LUNGS: Clear/diminished to auscultation. HEART: Regular rate and rhythm, S1, S2 without murmur rubs or gallops. Genitourinary: No hematuria ABDOMEN: Soft, nontender, and nondistended. Positive bowel sounds. No hepatosplenomegaly was noted. SKIN: No ulceration or induration present. - Patient Status Disposition: Transfer Hospital Swing Bed Condition: Good Functional capacity at discharge: uses cane/walker Overall status at discharge: patient is progressing back to baseline - Discharge Instructions Instructions: Chronic Hypertension (DC), Weakness (GEN), Hyperlipidemia (DC) Follow Up With: Rigo Lawler MD [Partnered Physician] - 07/19/18 8:45 am Jak Cheung MD [Primary Care Provider] - - Diet and Activity Activity: increase activity as tolerated, resume usual activities as tolerated Diet: advance to your usual diet - VTE Reasons for not Prescribing Prophylaxis: Medical contraindication Documentation of Mechanical Device: Intermittent pneumatic compression device
--- NOTE | 2018-07-13 17:41 | Physician Discharge Referral ---
ExtendedCare Referral Info Transfer To: [facility] Provider in Charge after Transfer: Other (facility provider) Institutional Level of Care: Intermediate - Diagnosis (1) Acute cystitis with hematuria Priority: Primary Status: Acute (2) Enlarged prostate Priority: Secondary Status: Acute (3) Urinary retention Priority: Secondary Status: Acute (4) General weakness Priority: Secondary Status: Acute (5) HTN (hypertension) Priority: Secondary Status: Acute (6) HLD (hyperlipidemia) Priority: Secondary Status: Acute (7) Gross hematuria Priority: Secondary Status: Resolved (8) DVT prophylaxis Priority: Secondary Status: Acute Prognosis: Good Aware of Diagnosis: Patient Aware of Prognosis: Patient - Transfer Medications Home Medications: Atorvastatin [Lipitor] 40 mg PO HS 07/08/18 [History] Carbidopa/Levodopa 25/100 [Sinemet 25/100] 1 tab PO TID 07/08/18 [History] Fluticasone Propionate Nasal [Flonase] 2 spr NS DAILY 07/08/18 [History] Loratadine [Allergy Relief] 10 mg PO DAILY 07/08/18 [History] Losartan [Cozaar] 25 mg PO DAILY 07/08/18 [History] Metoprolol Succinate [Toprol Xl] 25 mg PO DAILY 07/08/18 [History] Mirtazapine [Remeron] 45 mg PO HS 07/08/18 [History] Montelukast [Singulair] 10 mg PO DAILY 07/08/18 [History] Pantoprazole Sodium [Protonix] 40 mg PO DAILY 07/08/18 [History] Ropinirole HCl [Requip] 2 mg PO TID 07/08/18 [History] Spironolactone [Aldactone] 25 mg PO DAILY 07/08/18 [History] Tamsulosin HCl [Flomax] 0.4 mg PO DAILY 07/08/18 [History] diazePAM [Valium] 5 mg PO HS 07/08/18 [History] Allergies/Adverse Reactions: 3 Allergy/AdvReac Type Severity Reaction Status Date / Time No Known Allergies Allergy Verified 02/15/17 14:23 - Respiratory Orders Smoking Cessation: Smoking cessation has been advised. For more information, call the [place] Tobacco Quit Line at 3-733-KCPZ-NOW. - Advance Directives Code Status: Full Code - Mobility Orders Ambulate - Rehabiliation Orders Rehab Orders: ROM Exercises, Evaluation for Physical Therapy, Evaluation for Occupational Therapy - Diet Orders Regular CERTIFICATION: I certify that the transfer of the above named patient to an Extended Care Facility is necessary for the continuing treatment of the diagnosis listed. The above information is true and accurate reflection of patient's current condition. Confidential - Redisclosure prohibited without a patient's written consent.
[2018-07-13] MEDS: Finasteride 5 MG TABLET PO SCH (17:51)
[2018-07-13] MEDS ORDERED: Neosporin OINT 15 GM TUBE TP SCH (21:00)
== END 2018-07-13 18:28 | disposition other institution (70) ==
LOC: EMEROOARM 14:57 → 3BNU 14:57 → SUATTDRO 18:07 → 3BNU 18:37
PROVIDERS: ADMIT Family Medicine; ATTEND Hospitalist

== ENCOUNTER 2019-08-16 12:39 | Inpatient (IN) ==
[2019-08-16] MEDS ORDERED: *HR* FentaNYL (PF) 100 MCG/2 ML VIAL IVP ONE (13:01)
[2019-08-16 13:29] LABS: Basophils % 0.1 %; Eosinophils % 0.1 %; Hematocrit 39.7 % (37.5-50.1); Hemoglobin 13.4 g/dL (12.9-16.9); Immature Granulocytes % 0.4 % (0-4); Lymphocytes # 0.5 K/mcL (0.6-4.6); Lymphocytes % 3.2 %; Mean Corpuscular HGB Conc 33.8 g/dL (31.6-35.5); Mean Corpuscular Hemoglobin 30.3 pg (28.0-33.3); Mean Corpuscular Volume 89.8 fL (83.0-100.0); Monocytes # 0.6 K/mcL (0.0-1.3); Neutrophils # 13.7 K/mcL (1.6-8.9); Platelet Count 181 K/mcL (140-400); Red Blood Count 4.42 M/mcL (4.19-5.50); Red Cell Distribution Width 13.2 % (11.5-14.5); Segmented Neutrophils % 92.2 %; White Blood Count 14.8 K/mcL (4.3-11.1)
[2019-08-16 13:36] LABS: INR 1.2; Prothrombin Time 13.1 Seconds (9.4-12.1)
[2019-08-16 13:39] LABS: Activated Partial Thrombo Time 30.3 Seconds (26.0-36.0)
[2019-08-16 13:46] LABS: Troponin I < 0.03 ng/mL (< 0.04)
[2019-08-16 13:49] LABS: Alanine Aminotransferase 3 Units/L (7-52); Albumin 3.7 g/dL (3.5-5.7); Albumin/Globulin Ratio 1.5 (1.1-2.2); Alkaline Phosphatase 74 Units/L (34-104); Aspartate Amino Transferase 14 Units/L (13-39); BUN/Creatinine Ratio 14 (6-26); Bilirubin,Total 0.8 mg/dL (0.3-1.0); Blood Urea Nitrogen 12 mg/dL (8-23); Calcium 8.6 mg/dL (8.6-10.3); Carbon Dioxide 23 mEq/L (23-29); Chloride 105 mEq/L (98-107); Creatine Kinase 110 Units/L (30-223); Globulin 2.5 g/dL (2.4-3.5); Glucose 133 mg/dL (70-105); Osmolality,Calculated 286 (280-300); Potassium 3.4 mEq/L (3.5-5.1); Sodium 137 mEq/L (136-145); Total Protein 6.2 g/dL (6.4-8.9); eGFR For African Americans > 60 (> 60); eGFR For Non-African Americans > 60 (> 60)
[2019-08-16 14:03] LABS: Bilirubin,Urine Negative (Negative); Blood,Urine Large (Negative); Clarity,Urine Clear (Clear); Color,Urine Dark Yellow (Yellow); Glucose,Urine (UA) Normal (Normal); Ketones,Urine Trace mg/dL (Negative); Leukocyte Esterase,Urine Negative (Negative); Nitrite,Urine Negative (Negative); PH,Urine 5.5 pH Units (5.0-8.0); Protein,Urine 30 mg/dL (Neg-Trace); Specific Gravity,Urine 1.027 (1.010-1.025); Urobilinogen,Urine Normal (Normal)
[2019-08-16 14:04] LABS: RBC,Urine TNTC per hpf (0-3); Squamous Epithelial Cell,Urine Many per lpf (None-Few)
[2019-08-16] MEDS ORDERED: 0.9 % Sodium Chloride 1,000 ML IVC ONE (14:08)
[2019-08-16 14:18] LABS: Bacteria,Urine Few per hpf (None-Few)
[2019-08-16] MEDS ORDERED: Ondansetron 4 MG/2 ML VIAL IVP PRN (14:51)
[2019-08-16] MEDS ORDERED: Naloxone 0.4 MG/ML INJ IVP PRN (14:51)
[2019-08-16] MEDS ORDERED: Ketorolac 15 MG/ML VIAL IVP PRN (14:51)
[2019-08-16] MEDS ORDERED: Nitroglycerin 0.4 MG TAB.SUBL SL PRN (14:53)
[2019-08-16] MEDS: rOPINIRole 1 MG TABLET PO SCH ×2 (15:49→20:47)
[2019-08-16] MEDS: Carbidopa/Levodopa 25/100 TABLET PO SCH ×2 (15:49→20:46)
[2019-08-16] MEDS ORDERED: cefTRIAXone 1,000 MG in Water for inj. (sterile) 10 ML IVP SCH (16:00)
[2019-08-16] MEDS ORDERED: *HR* Enoxaparin 30 MG/0.3 ML SYRINGE SQ ONE (16:23)
[2019-08-16] MEDS: Ampicillin/Sulbactam 1,500 MG in 0.9 % Sodium Chloride Mini Bag 100 ML IVPB SCH ×2 (18:03→23:48)
[2019-08-16] MEDS ORDERED: Mirtazapine 15 MG TABLET PO SCH (21:00)
[2019-08-17] MEDS: Ampicillin/Sulbactam 1,500 MG in 0.9 % Sodium Chloride Mini Bag 100 ML IVPB SCH ×3 (05:11→23:52)
[2019-08-17 05:22] LABS: Hematocrit 40.7 % (37.5-50.1); Hemoglobin 13.7 g/dL (12.9-16.9); Mean Corpuscular HGB Conc 33.7 g/dL (31.6-35.5); Mean Corpuscular Hemoglobin 30.4 pg (28.0-33.3); Mean Corpuscular Volume 90.4 fL (83.0-100.0); Mean Platelet Volume 10.1 fL (9.4-12.4); Platelet Count 180 K/mcL (140-400); Red Cell Distribution Width 13.4 % (11.5-14.5); White Blood Count 9.9 K/mcL (4.3-11.1)
[2019-08-17 05:40] LABS: BUN/Creatinine Ratio 14 (6-26); Blood Urea Nitrogen 13 mg/dL (8-23); Calcium 8.4 mg/dL (8.6-10.3); Carbon Dioxide 26 mEq/L (23-29); Chloride 104 mEq/L (98-107); Glucose 102 mg/dL (70-105); Magnesium 1.6 mg/dL (1.6-2.6); Osmolality,Calculated 286 (280-300); Potassium 3.8 mEq/L (3.5-5.1); Sodium 138 mEq/L (136-145); eGFR For African Americans > 60 (> 60); eGFR For Non-African Americans > 60 (> 60)
[2019-08-17] MEDS ORDERED: *HR* Enoxaparin 40 MG/0.4 ML SYRINGE SQ SCH (06:00)
[2019-08-17] MEDS ORDERED: Spironolactone 25 MG TABLET PO SCH (09:00)
[2019-08-17] MEDS ORDERED: Fluticasone Propionate Nasal 50 MCG/SPRAY BOTTLE NS SCH (09:00)
[2019-08-17] MEDS: Carbidopa/Levodopa 25/100 TABLET PO SCH ×3 (09:30→21:06)
[2019-08-17] MEDS: rOPINIRole 1 MG TABLET PO SCH ×3 (09:30→21:05)
[2019-08-17] MEDS ORDERED: Vancomycin 1,000 MG VIAL ONE (16:28)
[2019-08-17] MEDS ORDERED: Ethanol\\Acetic Acid\\Na Ace\\Ben 1,000 ML IRRIG.SOLN IR ONE (16:28)
[2019-08-17] MEDS ORDERED: Ondansetron 4 MG/2 ML VIAL ONE (17:43)
[2019-08-17] MEDS ORDERED: *HR* Rocuronium Bromide 50 MG/5 ML VIAL ONE (17:43)
[2019-08-17] MEDS ORDERED: *HR* Succinylcholine 200 MG/10 ML VIAL IVP ONE (17:43)
[2019-08-17] MEDS ORDERED: Lidocaine -MPF 4% 5 ML AMPUL ONE (17:43)
[2019-08-17] MEDS ORDERED: *HR* FentaNYL (PF) 100 MCG/2 ML VIAL ONE (17:43)
[2019-08-17] MEDS ORDERED: Dexamethasone 4 MG/ML VIAL ONE (17:43)
[2019-08-17] MEDS ORDERED: Lidocaine -MPF 2% 2 ML VIAL ONE (17:44)
[2019-08-17] MEDS ORDERED: *HR* Propofol 200 MG/20 ML VIAL IVP ONE (17:44)
[2019-08-17] MEDS ORDERED: Morphine Sulfate 2 MG/ML SYRINGE IVP PRN ×2 (17:50→20:40)
[2019-08-17] MEDS ORDERED: *HR* Heparin 5,000 UNIT/ML VIAL SQ SCH (18:00)
[2019-08-17] MEDS ORDERED: *HR* PHENYLEPHRINE 1,000 MCG/10 ML SYRINGE IVP ONE ×2 (18:10→19:25)
[2019-08-17] MEDS ORDERED: EPHEDrine 50 MG/ML VIAL ONE (18:11)
[2019-08-17] MEDS ORDERED: ceFAZolin 2,000 MG in Water for inj. (sterile) 20 ML IVP ONE (18:36)
[2019-08-17] MEDS ORDERED: Ondansetron 4 MG/2 ML VIAL IVP PRN (20:40)
[2019-08-17] MEDS ORDERED: Naloxone 0.4 MG/ML INJ IVP PRN (20:40)
[2019-08-17] MEDS ORDERED: Nitroglycerin 0.4 MG TAB.SUBL SL PRN (20:40)
[2019-08-17] MEDS: Mirtazapine 15 MG TABLET PO SCH (21:05)
[2019-08-18 05:51] LABS: Eosinophils % 0.1 %; Hematocrit 37.8 % (37.5-50.1); Hemoglobin 12.4 g/dL (12.9-16.9); Immature Granulocytes % 0.3 % (0-4); Lymphocytes # 0.4 K/mcL (0.6-4.6); Lymphocytes % 4.7 %; Mean Corpuscular HGB Conc 32.8 g/dL (31.6-35.5); Mean Corpuscular Hemoglobin 30.4 pg (28.0-33.3); Mean Corpuscular Volume 92.6 fL (83.0-100.0); Mean Platelet Volume 10.2 fL (9.4-12.4); Monocytes # 0.5 K/mcL (0.0-1.3); Monocytes % 5.1 %; Platelet Count 160 K/mcL (140-400); Red Blood Count 4.08 M/mcL (4.19-5.50); Red Cell Distribution Width 13.8 % (11.5-14.5); Segmented Neutrophils % 89.8 %; White Blood Count 8.9 K/mcL (4.3-11.1)
[2019-08-18 06:15] LABS: BUN/Creatinine Ratio 14 (6-26); Blood Urea Nitrogen 14 mg/dL (8-23); Calcium 8.2 mg/dL (8.6-10.3); Carbon Dioxide 26 mEq/L (23-29); Chloride 101 mEq/L (98-107); Glucose 146 mg/dL (70-105); Osmolality,Calculated 289 (280-300); Potassium 3.9 mEq/L (3.5-5.1); Sodium 138 mEq/L (136-145); eGFR For African Americans > 60 (> 60); eGFR For Non-African Americans > 60 (> 60)
[2019-08-18] MEDS: Ampicillin/Sulbactam 1,500 MG in 0.9 % Sodium Chloride Mini Bag 100 ML IVPB SCH ×5 (06:32→23:21)
[2019-08-18] MEDS ORDERED: Ringers Solution, Lactated 1,000 ML IVC SCH (08:45)
[2019-08-18] MEDS ORDERED: Spironolactone 25 MG TABLET PO SCH (09:00)
[2019-08-18] MEDS: Aspirin Enteric Coated 325 MG Tablet PO SCH (10:01)
[2019-08-18] MEDS: Carbidopa/Levodopa 25/100 TABLET PO SCH ×3 (10:03→20:44)
[2019-08-18] MEDS: rOPINIRole 1 MG TABLET PO SCH ×3 (10:04→20:44)
[2019-08-18] MEDS: Fluticasone Propionate Nasal 50 MCG/SPRAY BOTTLE NS SCH (10:05)
[2019-08-18] MEDS ORDERED: Bisacodyl 10 MG RECTAL SUPPOSITORY RC ONE (18:52)
[2019-08-18] MEDS: Mirtazapine 15 MG TABLET PO SCH (20:44)
[2019-08-19 04:47] LABS: Hematocrit 31.9 % (37.5-50.1); Hemoglobin 11.1 g/dL (12.9-16.9); Mean Corpuscular HGB Conc 34.8 g/dL (31.6-35.5); Mean Corpuscular Hemoglobin 31.3 pg (28.0-33.3); Mean Corpuscular Volume 89.9 fL (83.0-100.0); Mean Platelet Volume 9.9 fL (9.4-12.4); Platelet Count 144 K/mcL (140-400); Red Blood Count 3.55 M/mcL (4.19-5.50); Red Cell Distribution Width 13.5 % (11.5-14.5); White Blood Count 10.3 K/mcL (4.3-11.1)
[2019-08-19 05:02] LABS: BUN/Creatinine Ratio 17 (6-26); Blood Urea Nitrogen 13 mg/dL (8-23); Calcium 7.9 mg/dL (8.6-10.3); Carbon Dioxide 27 mEq/L (23-29); Chloride 100 mEq/L (98-107); Glucose 124 mg/dL (70-105); Osmolality,Calculated 280 (280-300); Potassium 3.5 mEq/L (3.5-5.1); Sodium 134 mEq/L (136-145); eGFR For African Americans > 60 (> 60); eGFR For Non-African Americans > 60 (> 60)
[2019-08-19] MEDS: Ampicillin/Sulbactam 1,500 MG in 0.9 % Sodium Chloride Mini Bag 100 ML IVPB SCH (05:39)
[2019-08-19] MEDS: Aspirin Enteric Coated 325 MG Tablet PO SCH (09:21)
[2019-08-19] MEDS: rOPINIRole 1 MG TABLET PO SCH ×3 (09:21→22:12)
[2019-08-19] MEDS: Carbidopa/Levodopa 25/100 TABLET PO SCH ×3 (09:22→22:11)
[2019-08-19] MEDS: Fluticasone Propionate Nasal 50 MCG/SPRAY BOTTLE NS SCH (15:03)
[2019-08-19] MEDS ORDERED: Bisacodyl 10 MG RECTAL SUPPOSITORY RC ONE (18:40)
[2019-08-19] MEDS: Mirtazapine 15 MG TABLET PO SCH (22:12)
[2019-08-20 05:51] LABS: Basophils % 0.1 %; Eosinophils # 0.1 K/mcL (0.0-0.6); Eosinophils % 1.6 %; Hematocrit 33.2 % (37.5-50.1); Hemoglobin 11.1 g/dL (12.9-16.9); Immature Granulocytes % 0.4 % (0-4); Lymphocytes % 13.8 %; Mean Corpuscular HGB Conc 33.4 g/dL (31.6-35.5); Mean Corpuscular Hemoglobin 30.5 pg (28.0-33.3); Mean Corpuscular Volume 91.2 fL (83.0-100.0); Monocytes # 0.7 K/mcL (0.0-1.3); Monocytes % 8.8 %; Neutrophils # 5.6 K/mcL (1.6-8.9); Platelet Count 175 K/mcL (140-400); Red Blood Count 3.64 M/mcL (4.19-5.50); Red Cell Distribution Width 13.6 % (11.5-14.5); Segmented Neutrophils % 75.3 %; White Blood Count 7.5 K/mcL (4.3-11.1)
[2019-08-20 06:10] LABS: BUN/Creatinine Ratio 18 (6-26); Blood Urea Nitrogen 14 mg/dL (8-23); Calcium 8.1 mg/dL (8.6-10.3); Carbon Dioxide 31 mEq/L (23-29); Chloride 99 mEq/L (98-107); Glucose 99 mg/dL (70-105); Osmolality,Calculated 281 (280-300); Potassium 3.7 mEq/L (3.5-5.1); Sodium 135 mEq/L (136-145); eGFR For African Americans > 60 (> 60); eGFR For Non-African Americans > 60 (> 60)
[2019-08-20] MEDS: rOPINIRole 1 MG TABLET PO SCH ×3 (08:26→20:15)
[2019-08-20] MEDS: Aspirin Enteric Coated 325 MG Tablet PO SCH (08:27)
[2019-08-20] MEDS: Carbidopa/Levodopa 25/100 TABLET PO SCH ×3 (08:27→20:15)
[2019-08-20] MEDS: Fluticasone Propionate Nasal 50 MCG/SPRAY BOTTLE NS SCH (08:29)
[2019-08-20] MEDS: Loratadine 10 MG TABLET PO SCH (18:09)
[2019-08-20] MEDS: Spironolactone 25 MG TABLET PO SCH (18:09)
[2019-08-20] MEDS: Mirtazapine 15 MG TABLET PO SCH (20:15)
[2019-08-21 04:00] LABS: Hemoglobin 10.1 g/dL (12.9-16.9); Mean Corpuscular HGB Conc 33.7 g/dL (31.6-35.5); Mean Corpuscular Hemoglobin 30.2 pg (28.0-33.3); Mean Corpuscular Volume 89.8 fL (83.0-100.0); Platelet Count 181 K/mcL (140-400); Red Blood Count 3.34 M/mcL (4.19-5.50); Red Cell Distribution Width 13.6 % (11.5-14.5); White Blood Count 7.1 K/mcL (4.3-11.1)
[2019-08-21 04:25] LABS: BUN/Creatinine Ratio 22 (6-26); Blood Urea Nitrogen 17 mg/dL (8-23); Calcium 7.9 mg/dL (8.6-10.3); Carbon Dioxide 26 mEq/L (23-29); Chloride 101 mEq/L (98-107); Glucose 100 mg/dL (70-105); Osmolality,Calculated 280 (280-300); Potassium 3.7 mEq/L (3.5-5.1); Sodium 134 mEq/L (136-145); eGFR For African Americans > 60 (> 60); eGFR For Non-African Americans > 60 (> 60)
[2019-08-21] MEDS: Aspirin Enteric Coated 325 MG Tablet PO SCH (07:38)
[2019-08-21] MEDS: rOPINIRole 1 MG TABLET PO SCH (07:39)
[2019-08-21] MEDS: Loratadine 10 MG TABLET PO SCH (07:39)
[2019-08-21] MEDS: Carbidopa/Levodopa 25/100 TABLET PO SCH (07:39)
[2019-08-21] MEDS: Fluticasone Propionate Nasal 50 MCG/SPRAY BOTTLE NS SCH (07:40)
[2019-08-21] MEDS: Spironolactone 25 MG TABLET PO SCH (07:40)
[2019-08-21 10:29] VITALS: BP 111/65
[2019-08-21] MEDS ORDERED: FLU Vac QV 19-20 (6Month+)/PF 0.5 ML SYRINGE IM ONE (11:25)
== END 2019-08-21 13:45 | DRG 470 ==
LOC: EMEROOARM 12:39 → 3ANU 12:39 → SUATTDRO 14:23 → 3ANU 15:27 → 3NENU 08-17 22:46
PROVIDERS: ADMIT Internal Medicine; ATTEND Internal Medicine

== ENCOUNTER 2020-01-11 15:28 | Observation (INO) ==
[2020-01-11] MEDS ORDERED: 0.9 % Sodium Chloride 500 ML IVC ONE (15:54)
[2020-01-11 16:26] LABS: Basophils % 0.2 %; Hematocrit 42.8 % (37.5-50.1); Mean Platelet Volume 9.9 fL (9.4-12.4); Red Cell Distribution Width 13.5 % (11.5-14.5)
[2020-01-11 16:28] LABS: Hemoglobin 14.3 g/dL (12.9-16.9); Immature Granulocytes % 0.4 % (0-4); Immature Platelets 2.5 % (1.1-6.1); Lymphocytes # 0.3 K/mcL (0.6-4.6); Lymphocytes % 5.4 %; Mean Corpuscular HGB Conc 33.4 g/dL (31.6-35.5); Mean Corpuscular Hemoglobin 30.6 pg (28.0-33.3); Mean Corpuscular Volume 91.6 fL (83.0-100.0); Monocytes # 0.5 K/mcL (0.0-1.3); Neutrophils # 4.3 K/mcL (1.6-8.9); Platelet Count 130 K/mcL (140-400); Red Blood Count 4.67 M/mcL (4.19-5.50)
[2020-01-11 16:55] LABS: Alanine Aminotransferase < 3 Units/L (7-52); Albumin 3.9 g/dL (3.5-5.7); Albumin/Globulin Ratio 1.5 (1.1-2.2); Alkaline Phosphatase 84 Units/L (34-104); Aspartate Amino Transferase 16 Units/L (13-39); BUN/Creatinine Ratio 18 (6-26); Bilirubin,Direct 0.1 mg/dL (0.0-0.2); Bilirubin,Indirect 0.5 mg/dL (0.0-1.0); Bilirubin,Total 0.6 mg/dL (0.3-1.0); Blood Urea Nitrogen 16 mg/dL (8-23); Calcium 8.6 mg/dL (8.6-10.3); Carbon Dioxide 25 mEq/L (23-29); Chloride 99 mEq/L (98-107); Ethanol < 10 mg/dL (Less than 10); Globulin 2.6 g/dL (2.4-3.5); Glucose 106 mg/dL (70-105); Osmolality,Calculated 276 (280-300); Potassium 3.6 mEq/L (3.5-5.1); Sodium 132 mEq/L (136-145); Total Protein 6.5 g/dL (6.4-8.9); Troponin I < 0.03 ng/mL (< 0.04); eGFR For African Americans > 60 (> 60); eGFR For Non-African Americans > 60 (> 60)
[2020-01-11 17:09] LABS: Platelet Estimate Decreased (Normal)
[2020-01-11] MEDS ORDERED: Lidocaine Jelly 6ml 1 APPL/6 ML JEL.PF.APP TP ONE (18:28)
[2020-01-11] MEDS ORDERED: cefTRIAXone 1,000 MG in Water for inj. (sterile) 10 ML IVP ONE (21:17)
[2020-01-11 21:52] LABS: Bilirubin,Urine Negative (Negative); Blood,Urine Large (Negative); Clarity,Urine Cloudy (Clear); Color,Urine Red (Yellow); Glucose,Urine (UA) Normal (Normal); Ketones,Urine Trace mg/dL (Negative); Leukocyte Esterase,Urine Small (Negative); Nitrite,Urine Negative (Negative); PH,Urine 5.5 pH Units (5.0-8.0); Protein,Urine 30 mg/dL (Neg-Trace); Specific Gravity,Urine 1.022 (1.010-1.025); Urobilinogen,Urine Normal (Normal)
[2020-01-11 21:55] LABS: Bacteria,Urine None Seen per hpf (None-Few); Hyaline Casts,Urine None Seen per lpf (None-Few); RBC,Urine TNTC per hpf (0-3); Squamous Epithelial Cell,Urine Many per lpf (None-Few)
[2020-01-11 22:01] LABS: Amphetamine Screen,Urine Negative ng/mL (Cutoff=1000); Barbiturate Screen,Urine Negative ng/mL (Cutoff=200); Benzodiazepines Screen,Urine Negative ng/mL (Cutoff=200); Cannabinoid Screen,Urine Negative ng/mL (Cutoff = 50); Cocaine Screen,Urine Negative ng/mL (Cutoff= 300); Opiate Screen,Urine Negative ng/mL (Cutoff=300); Phencyclidine Screen,Urine Negative ng/mL (Cutoff=25)
[2020-01-12] MEDS ORDERED: Naloxone 0.4 MG/ML INJ IVP PRN (01:42)
[2020-01-12] MEDS: 0.9 % Sodium Chloride 1,000 ML IVC SCH ×2 (02:35→19:29)
[2020-01-12 02:40] LABS: Hemoglobin 13.9 g/dL (12.9-16.9); Immature Granulocytes % 0.3 % (0-4); Lymphocytes # 0.8 K/mcL (0.6-4.6); Lymphocytes % 19.9 %; Mean Corpuscular HGB Conc 33.9 g/dL (31.6-35.5); Mean Corpuscular Hemoglobin 31.2 pg (28.0-33.3); Mean Corpuscular Volume 92.1 fL (83.0-100.0); Mean Platelet Volume 9.8 fL (9.4-12.4); Monocytes # 0.5 K/mcL (0.0-1.3); Monocytes % 11.7 %; Neutrophils # 2.6 K/mcL (1.6-8.9); Platelet Count 129 K/mcL (140-400); Red Blood Count 4.45 M/mcL (4.19-5.50); Red Cell Distribution Width 13.3 % (11.5-14.5); Segmented Neutrophils % 68.1 %; White Blood Count 3.9 K/mcL (4.3-11.1)
[2020-01-12 02:47] LABS: INR 1.2
[2020-01-12] MEDS: cefTRIAXone 1,000 MG in Water for inj. (sterile) 10 ML IVP SCH (09:00)
[2020-01-13 04:35] LABS: Basophils % 0.2 %; Platelet Count 129 K/mcL (140-400)
[2020-01-13 04:37] LABS: Hematocrit 38.7 % (37.5-50.1); Hemoglobin 13.2 g/dL (12.9-16.9); Immature Granulocytes % 0.2 % (0-4); Immature Platelets 2.9 % (1.1-6.1); Lymphocytes # 1.1 K/mcL (0.6-4.6); Lymphocytes % 20.5 %; Mean Corpuscular HGB Conc 34.1 g/dL (31.6-35.5); Mean Corpuscular Volume 90.8 fL (83.0-100.0); Mean Platelet Volume 10.2 fL (9.4-12.4); Monocytes # 0.5 K/mcL (0.0-1.3); Monocytes % 8.8 %; Neutrophils # 3.7 K/mcL (1.6-8.9); Red Blood Count 4.26 M/mcL (4.19-5.50); Red Cell Distribution Width 13.6 % (11.5-14.5); Segmented Neutrophils % 70.3 %; White Blood Count 5.2 K/mcL (4.3-11.1)
[2020-01-13 04:53] LABS: BUN/Creatinine Ratio 15 (6-26); Blood Urea Nitrogen 13 mg/dL (8-23); Calcium 7.9 mg/dL (8.6-10.3); Carbon Dioxide 26 mEq/L (23-29); Chloride 103 mEq/L (98-107); Glucose 84 mg/dL (70-105); Osmolality,Calculated 279 (280-300); Potassium 3.6 mEq/L (3.5-5.1); Sodium 135 mEq/L (136-145); eGFR For African Americans > 60 (> 60); eGFR For Non-African Americans > 60 (> 60)
[2020-01-13] MEDS ORDERED: Nitroglycerin 0.4 MG TAB.SUBL SL PRN (08:29)
[2020-01-13] MEDS: Cyanocobalamin (B-12) 1,000 MCG TABLET PO SCH (09:50)
[2020-01-13] MEDS: rOPINIRole 1 MG TABLET PO SCH ×3 (09:50→21:36)
[2020-01-13] MEDS: cefTRIAXone 1,000 MG in Water for inj. (sterile) 10 ML IVP SCH (09:51)
[2020-01-13] MEDS: Loratadine 10 MG TABLET PO SCH (09:51)
[2020-01-13] MEDS: Fluticasone Propionate Nasal 50 MCG/SPRAY BOTTLE NS SCH (09:51)
[2020-01-13] MEDS: Carbidopa/Levodopa 25/100 TABLET PO SCH ×3 (09:51→21:36)
[2020-01-13] MEDS ORDERED: Benzonatate 100 MG CAPSULE PO PRN (14:30)
[2020-01-13] MEDS: GuaiFENesin Liq 200 MG/10 ML UDC PO SCH ×2 (16:47→23:07)
[2020-01-13] MEDS: Mirtazapine 15 MG TABLET PO SCH (21:36)
[2020-01-14] MEDS: GuaiFENesin Liq 200 MG/10 ML UDC PO SCH ×4 (05:21→22:20)
[2020-01-14 10:20] LABS: Basophils % 0.3 %; Eosinophils % 0.5 %; Hematocrit 40.7 % (37.5-50.1); Hemoglobin 13.7 g/dL (12.9-16.9); Immature Granulocytes % 0.3 % (0-4); Lymphocytes # 0.8 K/mcL (0.6-4.6); Lymphocytes % 21.9 %; Mean Corpuscular HGB Conc 33.7 g/dL (31.6-35.5); Mean Corpuscular Hemoglobin 30.4 pg (28.0-33.3); Mean Corpuscular Volume 90.4 fL (83.0-100.0); Mean Platelet Volume 10.3 fL (9.4-12.4); Monocytes # 0.3 K/mcL (0.0-1.3); Monocytes % 7.5 %; Neutrophils # 2.6 K/mcL (1.6-8.9); Platelet Count 133 K/mcL (140-400); Red Cell Distribution Width 13.5 % (11.5-14.5); Segmented Neutrophils % 69.5 %; White Blood Count 3.8 K/mcL (4.3-11.1)
[2020-01-14 10:38] LABS: BUN/Creatinine Ratio 21 (6-26); Blood Urea Nitrogen 17 mg/dL (8-23); Calcium 8.3 mg/dL (8.6-10.3); Carbon Dioxide 27 mEq/L (23-29); Chloride 104 mEq/L (98-107); Glucose 114 mg/dL (70-105); Osmolality,Calculated 286 (280-300); Potassium 3.3 mEq/L (3.5-5.1); Sodium 137 mEq/L (136-145); eGFR For African Americans > 60 (> 60); eGFR For Non-African Americans > 60 (> 60)
[2020-01-14] MEDS: Carbidopa/Levodopa 25/100 TABLET PO SCH ×3 (10:44→20:50)
[2020-01-14] MEDS: Cyanocobalamin (B-12) 1,000 MCG TABLET PO SCH (10:44)
[2020-01-14] MEDS: Loratadine 10 MG TABLET PO SCH (10:44)
[2020-01-14] MEDS: cefTRIAXone 1,000 MG in Water for inj. (sterile) 10 ML IVP SCH (10:44)
[2020-01-14] MEDS: rOPINIRole 1 MG TABLET PO SCH ×3 (10:44→20:50)
[2020-01-14] MEDS: Fluticasone Propionate Nasal 50 MCG/SPRAY BOTTLE NS SCH (10:45)
[2020-01-14] MEDS: *HR* Heparin 5,000 UNIT/ML VIAL SQ SCH (17:15)
[2020-01-14] MEDS: Mirtazapine 15 MG TABLET PO SCH (20:50)
[2020-01-15] MEDS: GuaiFENesin Liq 200 MG/10 ML UDC PO SCH ×4 (06:24→23:17)
[2020-01-15] MEDS: *HR* Heparin 5,000 UNIT/ML VIAL SQ SCH ×2 (06:24→17:44)
[2020-01-15] MEDS: Carbidopa/Levodopa 25/100 TABLET PO SCH ×3 (09:03→19:37)
[2020-01-15] MEDS: Loratadine 10 MG TABLET PO SCH (09:03)
[2020-01-15] MEDS: Aspirin Enteric Coated 81 MG Tablet PO SCH (09:03)
[2020-01-15] MEDS: Cyanocobalamin (B-12) 1,000 MCG TABLET PO SCH (09:03)
[2020-01-15] MEDS: rOPINIRole 1 MG TABLET PO SCH ×3 (09:04→19:37)
[2020-01-15] MEDS: Fluticasone Propionate Nasal 50 MCG/SPRAY BOTTLE NS SCH (09:05)
[2020-01-15] MEDS: Mirtazapine 15 MG TABLET PO SCH (19:37)
[2020-01-16] MEDS ORDERED: *HR* LORazepam 2 MG/ML VIAL IVP ONE (01:59)
[2020-01-16] MEDS: GuaiFENesin Liq 200 MG/10 ML UDC PO SCH ×4 (05:24→23:27)
[2020-01-16] MEDS: *HR* Heparin 5,000 UNIT/ML VIAL SQ SCH ×2 (05:24→17:33)
[2020-01-16] MEDS: rOPINIRole 1 MG TABLET PO SCH ×3 (09:08→20:26)
[2020-01-16] MEDS: Carbidopa/Levodopa 25/100 TABLET PO SCH ×3 (09:08→20:26)
[2020-01-16] MEDS: Loratadine 10 MG TABLET PO SCH (09:08)
[2020-01-16] MEDS: Cyanocobalamin (B-12) 1,000 MCG TABLET PO SCH (09:10)
[2020-01-16] MEDS: Fluticasone Propionate Nasal 50 MCG/SPRAY BOTTLE NS SCH (09:11)
[2020-01-16] MEDS: Mirtazapine 15 MG TABLET PO SCH (20:26)
[2020-01-17] MEDS: *HR* Heparin 5,000 UNIT/ML VIAL SQ SCH (05:23)
[2020-01-17] MEDS: GuaiFENesin Liq 200 MG/10 ML UDC PO SCH (05:23)
[2020-01-17 06:37] LABS: Hematocrit 40.6 % (37.5-50.1); Hemoglobin 14.1 g/dL (12.9-16.9); Mean Corpuscular HGB Conc 34.7 g/dL (31.6-35.5); Mean Corpuscular Hemoglobin 31.3 pg (28.0-33.3); Mean Platelet Volume 10.3 fL (9.4-12.4); Platelet Count 189 K/mcL (140-400); Red Blood Count 4.51 M/mcL (4.19-5.50); Red Cell Distribution Width 13.4 % (11.5-14.5)
[2020-01-17 06:41] LABS: White Blood Count 6.5 K/mcL (4.3-11.1)
[2020-01-17 06:59] LABS: BUN/Creatinine Ratio 24 (6-26); Blood Urea Nitrogen 19 mg/dL (8-23); Calcium 8.8 mg/dL (8.6-10.3); Carbon Dioxide 28 mEq/L (23-29); Chloride 102 mEq/L (98-107); Glucose 96 mg/dL (70-105); Osmolality,Calculated 282 (280-300); Potassium 4.2 mEq/L (3.5-5.1); Sodium 135 mEq/L (136-145); eGFR For African Americans > 60 (> 60); eGFR For Non-African Americans > 60 (> 60)
[2020-01-17] MEDS: Loratadine 10 MG TABLET PO SCH (09:59)
[2020-01-17] MEDS: Carbidopa/Levodopa 25/100 TABLET PO SCH (09:59)
[2020-01-17] MEDS: Fluticasone Propionate Nasal 50 MCG/SPRAY BOTTLE NS SCH (09:59)
[2020-01-17] MEDS: Cyanocobalamin (B-12) 1,000 MCG TABLET PO SCH (09:59)
[2020-01-17] MEDS: rOPINIRole 1 MG TABLET PO SCH (09:59)
[2020-01-17] MEDS: Aspirin Enteric Coated 81 MG Tablet PO SCH (10:00)
[2020-01-17 11:13] VITALS: BP 113/67
== END 2020-01-17 13:17 ==
LOC: 2ANU 15:28 → EMEROOARM 15:28 → SUATTDRO 01-12 00:33 → 2ANU 01-12 01:20 → SUATTDRO 01-15 09:56
PROVIDERS: ADMIT Family Medicine; ATTEND Family Medicine

== ENCOUNTER 2020-09-26 10:16 | Observation (INO) ==
[2020-09-26] MEDS ORDERED: 0.9 % Sodium Chloride 1,000 ML IVC ONE (10:25)
[2020-09-26 11:09] LABS: Basophils % 0.4 %; Hematocrit 40.2 % (37.5-50.1); Hemoglobin 13.8 g/dL (12.9-16.9); Immature Granulocytes % 0.4 % (0-4); Lymphocytes # 0.3 K/mcL (0.6-4.6); Lymphocytes % 12.1 %; Mean Corpuscular HGB Conc 34.3 g/dL (31.6-35.5); Mean Corpuscular Hemoglobin 30.9 pg (28.0-33.3); Mean Corpuscular Volume 90.1 fL (83.0-100.0); Mean Platelet Volume 10.3 fL (9.4-12.4); Monocytes # 0.3 K/mcL (0.0-1.3); Monocytes % 12.1 %; Neutrophils # 2.1 K/mcL (1.6-8.9); Platelet Count 130 K/mcL (140-400); Red Blood Count 4.46 M/mcL (4.19-5.50); Red Cell Distribution Width 12.9 % (11.5-14.5); White Blood Count 2.8 K/mcL (4.3-11.1)
[2020-09-26] MEDS ORDERED: Azithromycin 500 MG in 0.9 % Sodium Chloride 250 ML IVPB ONE (11:18)
[2020-09-26] MEDS ORDERED: cefTRIAXone 1,000 MG in 0.9 % Sodium Chloride Mini Bag 100 ML IVPB ONE (11:18)
[2020-09-26 11:20] LABS: INR 1.3; Prothrombin Time 14.7 Seconds (9.4-12.1)
[2020-09-26 11:23] LABS: Activated Partial Thrombo Time 26.7 Seconds (26.0-36.0)
[2020-09-26 11:42] LABS: Bilirubin,Urine Negative (Negative); Blood,Urine Moderate (Negative); Clarity,Urine Clear (Clear); Color,Urine Yellow (Yellow); Glucose,Urine (UA) Normal (Normal); Ketones,Urine 10 mg/dL (Negative); Leukocyte Esterase,Urine Negative (Negative); Mucus,Urine Few per lpf (None-Few); Nitrite,Urine Negative (Negative); Protein,Urine 50 mg/dL (Neg-Trace); RBC,Urine 0-3 per hpf (0-3); Specific Gravity,Urine 1.029 (1.010-1.025); Squamous Epithelial Cell,Urine Few per hpf (None-Few); Urobilinogen,Urine Normal (Normal); WBC,Urine 0-3 per hpf (0-3)
[2020-09-26 11:51] LABS: Amphetamine Screen,Urine Negative ng/mL (Cutoff=1000); Barbiturate Screen,Urine Negative ng/mL (Cutoff=200); Benzodiazepines Screen,Urine Negative ng/mL (Cutoff=200); Cannabinoid Screen,Urine Negative ng/mL (Cutoff = 50); Cocaine Screen,Urine Negative ng/mL (Cutoff= 300); Opiate Screen,Urine Negative ng/mL (Cutoff=300); Phencyclidine Screen,Urine Negative ng/mL (Cutoff=25)
[2020-09-26 12:02] LABS: Alanine Aminotransferase 3 Units/L (7-52); Albumin 3.4 g/dL (3.5-5.7); Albumin/Globulin Ratio 1.4 (1.1-2.2); Alkaline Phosphatase 59 Units/L (34-104); Aspartate Amino Transferase 30 Units/L (13-39); BUN/Creatinine Ratio 19 (6-26); Bilirubin,Direct 0.1 mg/dL (0.0-0.2); Bilirubin,Indirect 0.4 mg/dL (0.0-1.0); Bilirubin,Total 0.5 mg/dL (0.3-1.0); Blood Urea Nitrogen 17 mg/dL (8-23); Calcium 7.8 mg/dL (8.6-10.3); Carbon Dioxide 21 mEq/L (23-29); Chloride 103 mEq/L (98-107); Creatine Kinase 1106 Units/L (30-223); Ethanol < 10 mg/dL (Less than 10); Globulin 2.4 g/dL (2.4-3.5); Glucose 92 mg/dL (70-105); Osmolality,Calculated 279 (280-300); Potassium 3.1 mEq/L (3.5-5.1); Sodium 134 mEq/L (136-145); Total Protein 5.8 g/dL (6.4-8.9); Troponin I < 0.03 ng/mL (< 0.04); eGFR For African Americans > 60 (> 60); eGFR For Non-African Americans > 60 (> 60)
[2020-09-26] MEDS ORDERED: Isovue-370 500 ML BOTTLE IVP ONE (12:08)
[2020-09-26] MEDS ORDERED: Potassium Chloride Elixir 20 MEQ/15 ML UDC PO ONE (12:08)
[2020-09-26] MEDS ORDERED: 0.9 % Sodium Chloride 2,000 ML IVC SCH (12:30)
[2020-09-26] MEDS ORDERED: Albuterol 2.5 MG/3 ML NEBULIZER IH PRN (14:55)
[2020-09-26] MEDS ORDERED: Naloxone 0.4 MG/ML INJ IVP PRN (14:55)
[2020-09-26] MEDS ORDERED: Ondansetron ODT 4 MG TAB.RAPDIS SL PRN (14:55)
[2020-09-26] MEDS ORDERED: Mag Hydrox/Al Hydrox/Simeth 30 ML UDC PO PRN (14:55)
[2020-09-26 16:35] LABS: C-Reactive Protein 43 mg/L (Less than 10); Lactate Dehydrogenase 204 Units/L (140-271); Magnesium 1.5 mg/dL (1.6-2.6)
[2020-09-26 21:23] LABS: D-Dimer 992 ng/mLFEU (0-500); Fibrinogen 292 mg/dL (169-393)
[2020-09-26] MEDS: *HR* Heparin 5,000 UNIT/ML VIAL SQ SCH (22:14)
[2020-09-27] MEDS: *HR* Heparin 5,000 UNIT/ML VIAL SQ SCH ×2 (05:10→15:05)
[2020-09-27 07:25] LABS: Basophils % 0.4 %; Eosinophils % 0.4 %; Hematocrit 40.5 % (37.5-50.1); Hemoglobin 13.3 g/dL (12.9-16.9); Lymphocytes # 0.9 K/mcL (0.6-4.6); Mean Corpuscular HGB Conc 32.8 g/dL (31.6-35.5); Mean Corpuscular Volume 91.2 fL (83.0-100.0); Mean Platelet Volume 10.4 fL (9.4-12.4); Monocytes # 0.3 K/mcL (0.0-1.3); Monocytes % 11.8 %; Neutrophils # 1.3 K/mcL (1.6-8.9); Platelet Count 131 K/mcL (140-400); Red Blood Count 4.44 M/mcL (4.19-5.50); Segmented Neutrophils % 52.4 %; White Blood Count 2.5 K/mcL (4.3-11.1)
[2020-09-27 07:46] LABS: Alanine Aminotransferase 15 Units/L (7-52); Albumin/Globulin Ratio 1.5 (1.1-2.2); Alkaline Phosphatase 55 Units/L (34-104); Aspartate Amino Transferase 41 Units/L (13-39); BUN/Creatinine Ratio 17 (6-26); Bilirubin,Total 0.4 mg/dL (0.3-1.0); Blood Urea Nitrogen 14 mg/dL (8-23); Calcium 7.6 mg/dL (8.6-10.3); Carbon Dioxide 26 mEq/L (23-29); Chloride 105 mEq/L (98-107); Glucose 83 mg/dL (70-105); Osmolality,Calculated 282 (280-300); Potassium 3.6 mEq/L (3.5-5.1); Sodium 136 mEq/L (136-145); eGFR For African Americans > 60 (> 60); eGFR For Non-African Americans > 60 (> 60)
[2020-09-27 08:34] LABS: Creatine Kinase 1269 Units/L (30-223)
[2020-09-27] MEDS ORDERED: Azithromycin 500 MG in 0.9 % Sodium Chloride 250 ML IVPB SCH (09:00)
[2020-09-27] MEDS: cefTRIAXone 1,000 MG in Water for inj. (sterile) 10 ML IVP SCH (09:03)
[2020-09-27] MEDS ORDERED: 0.9 % Sodium Chloride 1,000 ML IVC SCH (14:15)
[2020-09-27] MEDS: rOPINIRole 1 MG TABLET PO SCH ×2 (15:06→19:53)
[2020-09-27] MEDS: Carbidopa/Levodopa 25/100 TABLET PO SCH ×2 (15:06→19:53)
[2020-09-27] MEDS: Aspirin Enteric Coated 81 MG Tablet PO SCH (15:07)
[2020-09-27] MEDS: Mirtazapine 15 MG TABLET PO SCH (19:54)
[2020-09-28 04:16] LABS: Basophils % 0.3 %; Eosinophils % 1.3 %; Hematocrit 41.2 % (37.5-50.1); Hemoglobin 13.5 g/dL (12.9-16.9); Immature Granulocytes % 0.3 % (0-4); Lymphocytes % 32.9 %; Mean Corpuscular HGB Conc 32.8 g/dL (31.6-35.5); Mean Corpuscular Hemoglobin 29.9 pg (28.0-33.3); Mean Corpuscular Volume 91.4 fL (83.0-100.0); Mean Platelet Volume 10.5 fL (9.4-12.4); Monocytes # 0.3 K/mcL (0.0-1.3); Monocytes % 9.1 %; Neutrophils # 1.7 K/mcL (1.6-8.9); Platelet Count 129 K/mcL (140-400); Red Blood Count 4.51 M/mcL (4.19-5.50); Red Cell Distribution Width 12.8 % (11.5-14.5); Segmented Neutrophils % 56.1 %; White Blood Count 3.1 K/mcL (4.3-11.1)
[2020-09-28 04:34] LABS: Alanine Aminotransferase < 3 Units/L (7-52); Albumin 3.1 g/dL (3.5-5.7); Albumin/Globulin Ratio 1.6 (1.1-2.2); Alkaline Phosphatase 53 Units/L (34-104); Aspartate Amino Transferase 35 Units/L (13-39); BUN/Creatinine Ratio 15 (6-26); Bilirubin,Total 0.4 mg/dL (0.3-1.0); Blood Urea Nitrogen 12 mg/dL (8-23); Calcium 7.7 mg/dL (8.6-10.3); Carbon Dioxide 26 mEq/L (23-29); Chloride 106 mEq/L (98-107); Globulin 1.9 g/dL (2.4-3.5); Glucose 87 mg/dL (70-105); Osmolality,Calculated 281 (280-300); Potassium 3.3 mEq/L (3.5-5.1); Sodium 136 mEq/L (136-145); eGFR For African Americans > 60 (> 60); eGFR For Non-African Americans > 60 (> 60)
[2020-09-28] MEDS: *HR* Enoxaparin 40 MG/0.4 ML SYRINGE SQ SCH (05:12)
[2020-09-28] MEDS: Spironolactone 25 MG TABLET PO SCH (08:43)
[2020-09-28] MEDS: Cyanocobalamin (B-12) 1,000 MCG TABLET PO SCH (08:43)
[2020-09-28] MEDS: cefTRIAXone 1,000 MG in Water for inj. (sterile) 10 ML IVP SCH (08:43)
[2020-09-28] MEDS: Carbidopa/Levodopa 25/100 TABLET PO SCH ×3 (08:43→20:30)
[2020-09-28] MEDS: rOPINIRole 1 MG TABLET PO SCH ×3 (08:43→20:30)
[2020-09-28] MEDS: Mirtazapine 15 MG TABLET PO SCH (20:30)
[2020-09-29 05:43] LABS: Basophils % 0.3 %; Eosinophils # 0.1 K/mcL (0.0-0.6); Eosinophils % 2.2 %; Hemoglobin 13.5 g/dL (12.9-16.9); Immature Granulocytes % 0.3 % (0-4); Lymphocytes # 0.9 K/mcL (0.6-4.6); Mean Corpuscular HGB Conc 33.8 g/dL (31.6-35.5); Mean Corpuscular Hemoglobin 30.4 pg (28.0-33.3); Mean Corpuscular Volume 90.1 fL (83.0-100.0); Mean Platelet Volume 10.4 fL (9.4-12.4); Monocytes # 0.3 K/mcL (0.0-1.3); Monocytes % 9.1 %; Neutrophils # 2.3 K/mcL (1.6-8.9); Platelet Count 125 K/mcL (140-400); Red Blood Count 4.44 M/mcL (4.19-5.50); Red Cell Distribution Width 12.9 % (11.5-14.5); Segmented Neutrophils % 62.1 %; White Blood Count 3.6 K/mcL (4.3-11.1)
[2020-09-29 05:56] LABS: Alanine Aminotransferase 3 Units/L (7-52); Albumin/Globulin Ratio 1.4 (1.1-2.2); Alkaline Phosphatase 53 Units/L (34-104); Aspartate Amino Transferase 27 Units/L (13-39); BUN/Creatinine Ratio 10 (6-26); Bilirubin,Total 0.4 mg/dL (0.3-1.0); Blood Urea Nitrogen 8 mg/dL (8-23); Calcium 7.7 mg/dL (8.6-10.3); Carbon Dioxide 27 mEq/L (23-29); Chloride 103 mEq/L (98-107); Globulin 2.2 g/dL (2.4-3.5); Glucose 90 mg/dL (70-105); Osmolality,Calculated 280 (280-300); Potassium 3.2 mEq/L (3.5-5.1); Sodium 136 mEq/L (136-145); Total Protein 5.2 g/dL (6.4-8.9); eGFR For African Americans > 60 (> 60); eGFR For Non-African Americans > 60 (> 60)
[2020-09-29] MEDS: *HR* Enoxaparin 40 MG/0.4 ML SYRINGE SQ SCH (06:21)
[2020-09-29] MEDS: cefTRIAXone 1,000 MG in Water for inj. (sterile) 10 ML IVP SCH (08:19)
[2020-09-29] MEDS: Carbidopa/Levodopa 25/100 TABLET PO SCH ×3 (08:20→20:40)
[2020-09-29] MEDS: rOPINIRole 1 MG TABLET PO SCH ×3 (08:20→20:41)
[2020-09-29] MEDS: Cyanocobalamin (B-12) 1,000 MCG TABLET PO SCH (08:20)
[2020-09-29] MEDS: Spironolactone 25 MG TABLET PO SCH (08:20)
[2020-09-29] MEDS: Mirtazapine 15 MG TABLET PO SCH (20:41)
[2020-09-30 05:49] LABS: Basophils % 0.3 %; Immature Granulocytes % 0.3 % (0-4)
[2020-09-30 05:51] LABS: Eosinophils # 0.1 K/mcL (0.0-0.6); Eosinophils % 2.3 %; Hemoglobin 13.8 g/dL (12.9-16.9); Immature Platelets 5.3 % (1.1-6.1); Lymphocytes # 0.8 K/mcL (0.6-4.6); Lymphocytes % 20.1 %; Mean Corpuscular HGB Conc 33.7 g/dL (31.6-35.5); Mean Corpuscular Hemoglobin 30.3 pg (28.0-33.3); Mean Corpuscular Volume 89.9 fL (83.0-100.0); Mean Platelet Volume 10.7 fL (9.4-12.4); Monocytes # 0.3 K/mcL (0.0-1.3); Monocytes % 6.8 %; Neutrophils # 2.8 K/mcL (1.6-8.9); Platelet Count 117 K/mcL (140-400); Red Blood Count 4.56 M/mcL (4.19-5.50); Red Cell Distribution Width 12.8 % (11.5-14.5); Segmented Neutrophils % 70.2 %
[2020-09-30 06:08] LABS: Platelet Estimate Slight Decrease (Normal)
[2020-09-30] MEDS: *HR* Enoxaparin 40 MG/0.4 ML SYRINGE SQ SCH (06:11)
[2020-09-30 06:13] LABS: Alanine Aminotransferase 3 Units/L (7-52); Albumin 3.3 g/dL (3.5-5.7); Albumin/Globulin Ratio 1.4 (1.1-2.2); Alkaline Phosphatase 66 Units/L (34-104); Aspartate Amino Transferase 30 Units/L (13-39); BUN/Creatinine Ratio 15 (6-26); Bilirubin,Total 0.4 mg/dL (0.3-1.0); Blood Urea Nitrogen 11 mg/dL (8-23); Calcium 8.3 mg/dL (8.6-10.3); Carbon Dioxide 24 mEq/L (23-29); Chloride 106 mEq/L (98-107); Globulin 2.3 g/dL (2.4-3.5); Glucose 90 mg/dL (70-105); Osmolality,Calculated 281 (280-300); Potassium 3.9 mEq/L (3.5-5.1); Sodium 136 mEq/L (136-145); Total Protein 5.6 g/dL (6.4-8.9); eGFR For African Americans > 60 (> 60); eGFR For Non-African Americans > 60 (> 60)
[2020-09-30] MEDS: rOPINIRole 1 MG TABLET PO SCH ×3 (08:18→19:54)
[2020-09-30] MEDS: Cyanocobalamin (B-12) 1,000 MCG TABLET PO SCH (08:18)
[2020-09-30] MEDS: Carbidopa/Levodopa 25/100 TABLET PO SCH ×3 (08:19→19:54)
[2020-09-30] MEDS: cefTRIAXone 1,000 MG in Water for inj. (sterile) 10 ML IVP SCH (08:19)
[2020-09-30] MEDS: Spironolactone 25 MG TABLET PO SCH (08:19)
[2020-09-30] MEDS: Aspirin Enteric Coated 81 MG Tablet PO SCH (14:45)
[2020-09-30] MEDS: Mirtazapine 15 MG TABLET PO SCH (19:55)
[2020-10-01 01:16] LABS: Basophils % 0.3 %; Eosinophils # 0.1 K/mcL (0.0-0.6); Eosinophils % 1.6 %; Hematocrit 45.2 % (37.5-50.1); Hemoglobin 15.1 g/dL (12.9-16.9); Lymphocytes # 0.8 K/mcL (0.6-4.6); Lymphocytes % 21.8 %; Mean Corpuscular HGB Conc 33.4 g/dL (31.6-35.5); Mean Corpuscular Hemoglobin 31.1 pg (28.0-33.3); Mean Platelet Volume 10.7 fL (9.4-12.4); Monocytes # 0.4 K/mcL (0.0-1.3); Monocytes % 9.1 %; Neutrophils # 2.6 K/mcL (1.6-8.9); Platelet Count 120 K/mcL (140-400); Red Blood Count 4.86 M/mcL (4.19-5.50); Red Cell Distribution Width 12.8 % (11.5-14.5); Segmented Neutrophils % 67.2 %; White Blood Count 3.9 K/mcL (4.3-11.1)
[2020-10-01 01:50] LABS: Alanine Aminotransferase 7 Units/L (7-52); Albumin 3.6 g/dL (3.5-5.7); Albumin/Globulin Ratio 1.6 (1.1-2.2); Alkaline Phosphatase 81 Units/L (34-104); Aspartate Amino Transferase 44 Units/L (13-39); BUN/Creatinine Ratio 13 (6-26); Bilirubin,Total 0.5 mg/dL (0.3-1.0); Blood Urea Nitrogen 9 mg/dL (8-23); Calcium 8.4 mg/dL (8.6-10.3); Carbon Dioxide 19 mEq/L (23-29); Chloride 102 mEq/L (98-107); Globulin 2.3 g/dL (2.4-3.5); Glucose 110 mg/dL (70-105); Osmolality,Calculated 275 (280-300); Potassium 4.2 mEq/L (3.5-5.1); Sodium 133 mEq/L (136-145); Total Protein 5.9 g/dL (6.4-8.9); eGFR For African Americans > 60 (> 60); eGFR For Non-African Americans > 60 (> 60)
[2020-10-01] MEDS: *HR* Enoxaparin 40 MG/0.4 ML SYRINGE SQ SCH (05:26)
[2020-10-01] MEDS: rOPINIRole 1 MG TABLET PO SCH ×3 (09:17→19:46)
[2020-10-01] MEDS: Cyanocobalamin (B-12) 1,000 MCG TABLET PO SCH (09:17)
[2020-10-01] MEDS: Spironolactone 25 MG TABLET PO SCH (09:17)
[2020-10-01] MEDS: Carbidopa/Levodopa 25/100 TABLET PO SCH ×3 (09:17→19:47)
[2020-10-01] MEDS: Mirtazapine 15 MG TABLET PO SCH (19:47)
[2020-10-02 01:18] LABS: Basophils % 0.3 %; Eosinophils % 1.2 %; Hematocrit 43.7 % (37.5-50.1); Hemoglobin 14.7 g/dL (12.9-16.9); Immature Granulocytes % 0.3 % (0-4); Lymphocytes # 0.9 K/mcL (0.6-4.6); Lymphocytes % 26.6 %; Mean Corpuscular HGB Conc 33.6 g/dL (31.6-35.5); Mean Corpuscular Hemoglobin 29.9 pg (28.0-33.3); Mean Corpuscular Volume 88.8 fL (83.0-100.0); Mean Platelet Volume 10.3 fL (9.4-12.4); Monocytes # 0.3 K/mcL (0.0-1.3); Monocytes % 9.4 %; Neutrophils # 2.1 K/mcL (1.6-8.9); Platelet Count 146 K/mcL (140-400); Red Blood Count 4.92 M/mcL (4.19-5.50); Red Cell Distribution Width 12.6 % (11.5-14.5); Segmented Neutrophils % 62.2 %; White Blood Count 3.3 K/mcL (4.3-11.1)
[2020-10-02 01:37] LABS: Alanine Aminotransferase 6 Units/L (7-52); Albumin 3.7 g/dL (3.5-5.7); Albumin/Globulin Ratio 1.4 (1.1-2.2); Alkaline Phosphatase 82 Units/L (34-104); Aspartate Amino Transferase 43 Units/L (13-39); BUN/Creatinine Ratio 14 (6-26); Bilirubin,Total 0.6 mg/dL (0.3-1.0); Blood Urea Nitrogen 10 mg/dL (8-23); Calcium 8.5 mg/dL (8.6-10.3); Carbon Dioxide 26 mEq/L (23-29); Chloride 98 mEq/L (98-107); Globulin 2.6 g/dL (2.4-3.5); Glucose 112 mg/dL (70-105); Osmolality,Calculated 278 (280-300); Potassium 3.4 mEq/L (3.5-5.1); Sodium 134 mEq/L (136-145); Total Protein 6.3 g/dL (6.4-8.9); eGFR For African Americans > 60 (> 60); eGFR For Non-African Americans > 60 (> 60)
[2020-10-02] MEDS: *HR* Enoxaparin 40 MG/0.4 ML SYRINGE SQ SCH (05:24)
[2020-10-02] MEDS: rOPINIRole 1 MG TABLET PO SCH ×2 (10:11→16:23)
[2020-10-02] MEDS: Carbidopa/Levodopa 25/100 TABLET PO SCH ×2 (10:11→16:22)
[2020-10-02] MEDS: Cyanocobalamin (B-12) 1,000 MCG TABLET PO SCH (10:11)
[2020-10-02] MEDS: Spironolactone 25 MG TABLET PO SCH (10:11)
[2020-10-02 12:58] VITALS: BP 110/57
[2020-10-02] MEDS: Aspirin Enteric Coated 81 MG Tablet PO SCH (16:22)
== END 2020-10-02 19:20 ==
LOC: 2NENU 10:16 → EMEROOARM 10:16 → SUATTDRO 19:40 → 2NENU 20:38
PROVIDERS: ADMIT Family Medicine; ATTEND Internal Medicine